=== PATIENT | male | born 1945 | race Caucasian/White ===

== ENCOUNTER 2017-05-07 18:07 | Observation (INO) ==
[2017-05-07] MEDS ORDERED: Ipratropium/Albuterol Neb 3 ML IH ONE (18:17)
--- NOTE | 2017-05-07 18:27 | Emergency Department Note ---
Disposition Clinical Impression: Chest pain Qualifiers: Chest pain type: unspecified Qualified Code(s): R07.9 - Chest pain, unspecified Disposition: Admitted As Inpatient Condition: Good Forms: ED Satisfaction Letter, Work/School Release Time of Disposition: 20:11 General Adult HPI - General Chief complaint: ED Chest Pain Stated complaint: CP/SOB Time Seen by Provider: 05/07/17 18:11 Source: patient Mode of arrival: ambulatory Limitations: no limitations Nursing Notes Reviewed: Yes Vital Signs Reviewed: Yes - History of Present Illness HPI Narrative: 72-year-old male presenting to the emergency department complaining of chest pain. The patient states it radiates slightly in between his shoulder blades. He denies any radiation into his arms. He denies any nausea, vomiting or diaphoresis with these symptoms. Patient is a significant past medical history of heart surgery in 2007. He denies being on any anticoagulation at this time. He also states he has COPD and was just treated for bronchitis and finished amoxicillin on Sunday. Patient denies any other symptoms at this time. He states the pain comes and goes since last evening. He did not try anything at home. The pain is nonexertional. Pain Scale: 5 - Related Data Allergies Allergy/AdvReac Type Severity Reaction Status Date / Time Sulfa (Sulfonamide Allergy Hives Verified 05/07/17 18:08 Antibiotics) morphine AdvReac "Makes me Verified 05/07/17 18:08 crazy" All systems ED: reviewed and negative except as stated. Constitutional: Denies: fever, chills Eyes: Reports: as per HPI ENT ED: Reports: as per HPI Cardiovascular: Reports: chest pain. Denies: palpitations Respiratory: Reports: dyspnea, wheezes Gastrointestinal: Denies: abdominal pain, nausea, vomiting Genitourinary: Reports: as per HPI Musculoskeletal: Reports: back pain Integumentary: Denies: rash, abrasion Neurological: Denies: weakness, numbness, paresthesias Psychiatric: Reports: as per HPI Endocrine: Reports: as per HPI Hematological/Lymphatic: Reports: as per HPI Allergic/Immunologic: Reports: as per HPI Past Medical History - Past Medical History Attestation: Yes The following information was validated with the patient. Medical history: Reports: COPD, hypertension - Social History Smoking Status: Current every day smoker Alcohol use: Reports: none Drug use: Reports: none Physical Exam - General Limitations: no limitations General appearance: alert, in no apparent distress - Head Head exam: atraumatic, normocephalic, normal inspection - Eye Eye exam: Present: normal appearance. Absent: scleral icterus, conjunctival injection - Chest Chest inspection: Present: normal inspection, symmetric chest wall rise. Absent : tenderness, rash - Respiratory Respiratory exam: Present: wheezes (expiratory wheezing noted throughout). Absent: respiratory distress, stridor, accessory muscle use - Cardiovascular Cardiovascular exam: Present: regular rate, normal rhythm, normal heart sounds - Abdominal Exam Abdominal exam: Present: soft, Non-Tender. Absent: distention, guarding, rebound - Extremities Exam Extremities exam: Present: normal inspection, full ROM - Neurological Exam Neurological exam: Present: alert, oriented X3 - Psychiatric Psychiatric exam: Present: normal affect, normal mood - Skin Skin exam: Present: warm, intact Course Course Narrative: 72-year-old male presenting to the emergency department with chief complaint of chest pain and shortness of breath. Patient has significant history of COPD with chronic bronchitis and had a previous open heart surgery in 2007. Patient has nonspecific T-wave changes on his EKG. Heart score greater than 3 at this time. We will perform a chest pain workup including troponin, EKG, basic labs along with a chest x-ray. We also provide the patient with 2 nebs for his expiratory wheezing. Disposition most likely will be admission due to the patient's heart score but pending results. - Reevaluation(s) Reevaluation #1: Patient's white blood cell count elevated at 15.6. Otherwise labs are within normal limit. Patient's heart score is 6. We will admit the patient at this time for chest pain rule out. Patient is alert and oriented 3 in the room with stable vital signs at this time. He agrees with this plan. Dr. Hodges accepts the patient. Vital Signs Temperature 98.4 F 05/07/17 18:13 Pulse Rate 82 05/07/17 18:13 Respiratory Rate 16 05/07/17 18:13 Blood Pressure 130/87 05/07/17 18:13 O2 Sat by Pulse Oximetry 97 05/07/17 18:13 Temperature 98.4 F 05/07/17 18:13 Pulse Rate 79 05/07/17 20:00 Respiratory Rate 24 05/07/17 20:00 Blood Pressure 125/86 05/07/17 20:00 O2 Sat by Pulse Oximetry 93 05/07/17 20:00 Oxygen Delivery Oxygen Delivery Room Air Medical Decision Making - Lab Data Result diagrams: 05/07/17 19:01 05/07/17 19:01 Lab Results 05/07/17 05/07/17 05/07/17 Range/Units 19:01 19: 19:01 WBC 15.6 H (4.3-11.1) K/mcL RBC 4.63 (4.19-5.50) M/mcL Hgb 14.2 (12.9-16.9) g/dL Hct 43.4 (37.5-50.1) % MCV 93.7 (83.0-100.0) fL MCH 30.7 (28.0-33.3) pg MCHC 32.7 (31.6-35.5) g/dL RDW 13.5 (11.5-14.5) % Plt Count 348 (140-400) K/mcL MPV 9.2 L (9.4-12.4) fL Immature Gran % 0.6 (0-4) % Seg Neutrophils % 77.2 % Lymphocytes % 10.2 % Monocytes % 9.6 % Eosinophils % 2.1 % Basophils % 0.3 % Neutrophils # 12.1 H (1.6-8.9) K/mcL Lymphocytes # 1.6 (0.6-4.6) K/mcL Monocytes # 1.5 H (0.0-1.3) K/mcL Eosinophils # 0.3 (0.0-0.6) K/mcL Basophils # 0.1 (0.0-0.2) K/mcL PT 10.5 (9.4-12.1) Seconds INR 1.0 Sodium 137 (136-145) mEq/L Potassium 4.1 (3.5-4.5) mEq/L Chloride 101 (98-109) mEq/L Carbon Dioxide 26 (19-29) mEq/L BUN 21 (8-26) mg/dL Creatinine 0.90 (0.72-1.25) mg/dL Est GFR ( Amer) > 60 (> 60) Est GFR (Non-Af Amer) > 60 (> 60) BUN/Creatinine Ratio 23 (6-26) Glucose 83 (70-99) mg/dL Calculated Osmolality 286 (280-300) Calcium 9.5 (8.6-10.8) mg/dL Troponin I (0-0.03) ng/mL 05/07/17 Range/Units 19:01 WBC (4.3-11.1) K/mcL RBC (4.19-5.50) M/mcL Hgb (12.9-16.9) g/dL Hct (37.5-50.1) % MCV (83.0-100.0) fL MCH (28.0-33.3) pg MCHC (31.6-35.5) g/dL RDW (11.5-14.5) % Plt Count (140-400) K/mcL MPV (9.4-12.4) fL Immature Gran % (0-4) % Seg Neutrophils % % Lymphocytes % % Monocytes % % Eosinophils % % Basophils % % Neutrophils # (1.6-8.9) K/mcL Lymphocytes # (0.6-4.6) K/mcL Monocytes # (0.0-1.3) K/mcL Eosinophils # (0.0-0.6) K/mcL Basophils # (0.0-0.2) K/mcL PT (9.4-12.1) Seconds INR Sodium (136-145) mEq/L Potassium (3.5-4.5) mEq/L Chloride (98-109) mEq/L Carbon Dioxide (19-29) mEq/L BUN (8-26) mg/dL Creatinine (0.72-1.25) mg/dL Est GFR ( Amer) (> 60) Est GFR (Non-Af Amer) (> 60) BUN/Creatinine Ratio (6-26) Glucose (70-99) mg/dL Calculated Osmolality (280-300) Calcium (8.6-10.8) mg/dL Troponin I 0.00 (0-0.03) ng/mL - EKG Data EKG #1 EKG attestation: Yes I reviewed and interpreted this EKG. EKG results narrative: Sinus rhythm. Left axis deviation. 82 bpm. NV interval 123, QRS 125, QTC 408. T-wave inversion noted in V1, V2, V3 and V4. When compared to previous EKG completed on 01/15/2014 due to noted in V3 and V4.
--- NOTE | 2017-05-07 18:30 | Emergency Department Note ---
START Narrative - START START: I examined this patient and my medical decision-making was reviewed with the [employer] HAND/PA/Advanced Practice Nurse/Resident Physician. I agree with the documented findings, disposition and treatment plan as described except to the extent set forth below. ED attending: Patient's emergency medicine resident Dr. Tracey Bazan. Please see copy of this note for H&P evaluation and management and ED disposition. We both had independent [id number] time in contact with this patient. Briefly: 72-year-old male history of CAD smoker heart scores 5. Presents with chest pain or discomfort similar to his prior open heart surgery. Going on for about a day or so. Physical examination is benign EKG shows new T-wave inversions in V4 and V5 compared to prior EKG. Patient will undergo troponin chest x-ray screening labs admission is anticipated. Disposition pending
[2017-05-07] MEDS ORDERED: Aspirin 81 MG TAB.CHEW PO STA (18:31)
[2017-05-07] MEDS ORDERED: Nitroglycerin 0.4 MG TAB.SUBL SL PRN (18:31)
[2017-05-07 19:42] LABS: Basophils # 0.1 K/mcL (0.0-0.2); Basophils % 0.3 %; Eosinophils # 0.3 K/mcL (0.0-0.6); Eosinophils % 2.1 %; Hematocrit 43.4 % (37.5-50.1); Hemoglobin 14.2 g/dL (12.9-16.9); Immature Granulocytes % 0.6 % (0-4); Lymphocytes # 1.6 K/mcL (0.6-4.6); Lymphocytes % 10.2 %; Mean Corpuscular HGB Conc 32.7 g/dL (31.6-35.5); Mean Corpuscular Hemoglobin 30.7 pg (28.0-33.3); Mean Corpuscular Volume 93.7 fL (83.0-100.0); Mean Platelet Volume 9.2 fL (9.4-12.4); Monocytes # 1.5 K/mcL (0.0-1.3); Monocytes % 9.6 %; Neutrophils # 12.1 K/mcL (1.6-8.9); Platelet Count 348 K/mcL (140-400); Red Blood Count 4.63 M/mcL (4.19-5.50); Red Cell Distribution Width 13.5 % (11.5-14.5); Segmented Neutrophils % 77.2 %
[2017-05-07 19:47] LABS: Prothrombin Time 10.5 Seconds (9.4-12.1)
[2017-05-07 19:58] LABS: BUN/Creatinine Ratio 23 (6-26); Blood Urea Nitrogen 21 mg/dL (8-26); Calcium 9.5 mg/dL (8.6-10.8); Carbon Dioxide 26 mEq/L (19-29); Chloride 101 mEq/L (98-109); Glucose 83 mg/dL (70-99); Osmolality,Calculated 286 (280-300); Potassium 4.1 mEq/L (3.5-4.5); Sodium 137 mEq/L (136-145); eGFR For African Americans > 60 (> 60); eGFR For Non-African Americans > 60 (> 60)
[2017-05-07] MEDS ORDERED: Naloxone 0.4 MG/ML INJ IVP PRN (23:26)
[2017-05-07] MEDS ORDERED: Mag Hydrox/Al Hydrox/Simeth 30 ML UDC PO PRN (23:26)
[2017-05-07] MEDS ORDERED: *HR* Morphine 2 MG/ML SYRINGE IVP PRN (23:26)
[2017-05-07] MEDS ORDERED: Ondansetron 4 MG/2 ML VIAL IVP PRN (23:26)
[2017-05-07] MEDS ORDERED: Albuterol 2.5 MG/3 ML NEBULIZER IH PRN (23:31)
--- NOTE | 2017-05-07 23:32 | Internal Med History&Physical ---
Date of Encounter: 05/07/17 Time of Encounter: 23:31 Assessment and Plan (1) Chest pain Current visit: Yes Status: Acute Atypical and pleuritic chest pain. EKG negative troponins negative. History of coronary artery disease status post CABG has not had any workup last few years. Patient is quite concerned. In order to alleviate patient's anxiety will go ahead and order stress Myoview test to alleviate his anxiety currently he is on aspirin beta romel and when necessary nitrates. Qualifiers: Chest pain type: unspecified Qualified Code(s): R07.9 - Chest pain, unspecified (2) Coronary artery disease Current visit: Yes Status: Acute Strip coronary artery disease a status post CABG has not had any workup in the last few years. Qualifiers: Coronary Disease-Associated Artery/Lesion type: bypass graft, autologous vein Associated angina: with unspecified angina Qualified Code(s): I25.719 - Atherosclerosis of autologous vein coronary artery bypass graft(s) with unspecified angina pectoris (3) COPD (chronic obstructive pulmonary disease) Current visit: Yes Status: Acute Scattered wheezing suspect still has bronchitis. Chest x-ray is negative for pneumonia. IV doxycycline and nebulizers. Qualifiers: COPD type: COPD with acute exacerbation Qualified Code(s): J44.1 - Chronic obstructive pulmonary disease with (acute) exacerbation Internal Medicine - H&P: HPI Chief complaint: Chest pain Admitted From: Home Plans for Post Hospital Care: Home History of present illness: Patient was seen on May 07. Mr. Gurrola is a 72 year old male past medical history significant for coronary artery disease status post CABG, hypertension dyslipidemia and smoking. Recently he was treated for upper respiratory tract infection and COPD exacerbation. Since then he has been having substernal chest pain which is pleuritic in nature. Patient states that substernal chest pain radiating to his back between shoulder blades. But it is not very intense neither does he feel dizzy or had syncope or any other symptoms otherwise. Denies any abdominal pain nausea vomiting diarrhea dysuria urgency frequency or hematuria and hematochezia hematemesis melena. Past Med Surg Social Fam HX - Past Medical History Medical history: COPD, hypertension Psychiatric history: no psych history - Past Surgical History Surgical History: coronary bypass (CABG) - Social History Smoking Status: Current every day smoker Alcohol use: none Drug use: none - Family History Mother Hx Family Neurologic Disorders: Yes (cva) Internal Medicine - H&P: Meds Albuterol Sulfate [Proair Hfa] 2 puff IH Q4H PRN 05/07/17 [History] Ascorbic Acid [Vitamin C] 500 mg PO DAILY 05/07/17 [History] Cholecalciferol (D-3) [Vitamin D] 1,000 unit PO DAILY 05/07/17 [History] Cyanocobalamin (Vitamin B-12) [Vitamin B12] 1,000 mcg PO DAILY 05/07/17 [History ] Lisinopril [Zestril] 40 mg PO DAILY 05/07/17 [History] Metoprolol [Lopressor] 25 mg PO BID 05/07/17 [History] Niacin [Plain Niacin] 500 mg PO DAILY 05/07/17 [History] Triamterene/HCTZ 37.5/25mg [Dyazide] 1 each PO DAILY 05/07/17 [History] Vitamin E Acid Succinate [Vitamin E] 400 units PO DAILY 05/07/17 [History] 3 Allergy/AdvReac Type Severity Reaction Status Date / Time Sulfa (Sulfonamide Allergy Hives Verified 05/07/17 18:08 Antibiotics) morphine AdvReac "Makes me Verified 05/07/17 18:08 crazy" All Systems PM: A 10-system review of systems was performed and is negative for pertinent findings except as documented above in the HPI. - Constitutional Constitutional: no chills, no fever(s), no night sweats - EENT Eyes: no change in vision, no discharge, no pain, no photophobia Ears: no ear discharge, no ear pain, no tinnitus Nose, mouth and throat: no dysphagia, no nasal discharge, no neck pain, no sore throat - Cardiovascular Cardiovascular ROS IM: chest pain, no diaphoresis, no dyspnea, no lightheadedness, no palpitations, no syncope - Respiratory Respiratory: cough, no dyspnea, no wheezing, no excessive phlegm production - Gastrointestinal Gastrointestinal: no abdominal pain, no diarrhea, no hematemesis, no hematochezia, no melena, no nausea, no vomiting - Musculoskeletal Musculoskeletal ROS IM: no numbness, no tingling - Integumentary Integumentary IM: no rash, no unusual bruising - Neurological Neurological ROS: no confusion, no convulsions, no focal weakness, no numbness, no tingling, no tremor(s) - Hematologic/Lymphatic Hematologic/Lymphatic: no easy bruising - Constitutional Vitals: Temp Pulse Resp BP Pulse Ox 98.0 F 75 16 134/77 95 05/07/17 22:42 05/07/17 22:42 05/07/17 22:42 05/07/17 22:42 05/07/17 22:42 General appearance: Present: A&O X 3, no acute distress, answers questions appropriately - Head Head exam: Present: atraumatic, normocephalic - Eye Eye exam: Present: PERRL, conjuntiva pink, sclera anicteric Pupils: Present: PERRL - Neck Neck exam general surgery: Present: supple, trachea midline. Absent: lymphadenopathy - Respiratory Respiratory exam: Present: CTAB. Absent: accessory muscle use, rales, rhonchi, wheezes - Cardiovascular Cardiovascular exam: Present: RRR, +S1, +S2. Absent: diastolic murmur, gallop, rubs, systolic murmur - GI/Abdominal GI/Abdominal exam: Present: normal bowel sounds, soft, no peritoneal signs. Absent: distended, tenderness - Extremities Exam Extremities exam: Present: warm, radial pulses palpable and symmetrical. Absent : calf tenderness, cyanotic, pedal edema - Neurological Exam Neurological exam: Present: CN II-XII intact, oriented X3, no focal deficits. Absent: pronater drift, facial droop, speech deficit - Skin Skin exam: Present: dry, intact Internal Med - H&P Results - Labs CBC & Chem 7: 05/07/17 19:01 05/07/17 19:01
[2017-05-07] MEDS ORDERED: 0.9 % Sodium Chloride 1,000 ML IVC SCH (23:45)
[2017-05-08] MEDS: Ipratropium/Albuterol Neb 3 ML IH SCH ×4 (00:01→15:43)
[2017-05-08] MEDS: Acetaminophen 325 MG TABLET PO PRN ×2 (00:15→06:17)
[2017-05-08 01:19] LABS: Chol/HDL Ratio 4.4 (0-4.9)
[2017-05-08] MEDS ORDERED: Doxycycline 100 MG in 0.9 % Sodium Chloride Mini Bag 100 ML IVPB SCH ×2 (06:00→09:00)
[2017-05-08] MEDS ORDERED: Regadenoson 0.4 MG/5 ML SYRINGE IVP ONE (07:34)
[2017-05-08] MEDS ORDERED: Cyanocobalamin (B-12) 1,000 MCG TABLET PO SCH (09:00)
[2017-05-08] MEDS ORDERED: Niacin (24 HR) 500 MG TAB.ER.24H PO SCH (09:00)
[2017-05-08] MEDS ORDERED: Aspirin 325 MG TABLET PO SCH (09:00)
[2017-05-08] MEDS ORDERED: Lisinopril 20 MG TABLET PO SCH (09:00)
[2017-05-08] MEDS ORDERED: Cholecalciferol (D-3) 1,000 UNIT TABLET PO SCH (09:00)
[2017-05-08] MEDS ORDERED: Ascorbic Acid 500 MG TABLET PO SCH (09:00)
[2017-05-08 11:07] LABS: Hematocrit 43.3 % (37.5-50.1); Hemoglobin 14.1 g/dL (12.9-16.9); Mean Corpuscular HGB Conc 32.6 g/dL (31.6-35.5); Mean Corpuscular Hemoglobin 30.6 pg (28.0-33.3); Mean Corpuscular Volume 93.9 fL (83.0-100.0); Mean Platelet Volume 8.9 fL (9.4-12.4); Platelet Count 321 K/mcL (140-400); Red Blood Count 4.61 M/mcL (4.19-5.50); Red Cell Distribution Width 13.7 % (11.5-14.5)
[2017-05-08 15:25] VITALS: BP 131/81
--- NOTE | 2017-05-08 16:17 | Discharge Summary ---
Date of Encounter: 05/08/17 Time of Encounter: 16:07 - Discharge Diagnosis (1) Acute bronchitis Priority: Primary Status: Acute Comments: Suspected. Chest CTA with pulmonary emphysema with acute or chronic bronchitis. Symptomatic with productive cough, subjective fevers. WBC 16 K, lactic acid normal. Recently completed a 10 day course of Levaquin outpatient. Strongly encouraged patient to stay inpatient for IV ATB, blood cultures and urine culture, however patient refusing. Will give Rx for doxycycline. Recommend follow-up with PCP within 3-5 days. Patient left AMA on 05/08/2017. Qualifiers: Bronchitis organism: unspecified organism Qualified Code(s): J20.9 - Acute bronchitis, unspecified (2) Metastatic lung cancer (metastasis from lung to other site) Priority: Primary Status: Acute Comments: chest CTA with right upper lobe malignant appearing mass with probable mediastinal invasion and hepatic metastatic disease concerning for primary lung cancer. This is a new diagnosis, a long discussion with the patient and he is declining oncology evaluation at this time. Request that is not told about diagnosis. Strongly encourage outpatient follow-up. Patient has follow- up appointment with PCP 05/16/17 and will discuss with PCP at that time. Qualifiers: Laterality: right Qualified Code(s): C34.91 - Malignant neoplasm of unspecified part of right bronchus or lung (3) Coronary artery disease Priority: Primary Status: Acute Comments: per hx. presented with intermittent chest pain. Serial troponin negative. 05/13 stress test negative for infarct or ischemia. Chest pain possibly secondary to bronchitis and/or new diagnosis of lung cancer. No home ASA, BB. Qualifiers: Coronary Disease-Associated Artery/Lesion type: [place] artery [place] vs. transplanted heart: [place] heart Associated angina: without angina Qualified Code(s): I25.10 - Atherosclerotic heart disease of [place] coronary artery without angina pectoris (4) COPD (chronic obstructive pulmonary disease) Priority: Primary Status: Chronic Comments: per hx. no evidence of exacerbation; no wheezing. Treating for acute on chronic bronchitis as noted above. Continue home inhaler. Qualifiers: COPD type: emphysema Emphysema type: unilateral Qualified Code(s): J43.0 - Unilateral pulmonary emphysema [MacLeod's syndrome] (5) Descending thoracic aortic aneurysm Priority: Secondary Status: Acute Comments: Chest CTA with 3.7 cm ectasia of the descending thoracic aorta. Strongly advised BP control and outpatient follow-up. - Discharge Medications Prescriptions: Aspirin 81 mg PO DAILY #30 tab.chew Doxycycline 100 mg PO BID #14 capsule Home Medications: Albuterol Sulfate [Proair Hfa] 2 puff IH Q4H PRN 05/07/17 [History] Ascorbic Acid [Vitamin C] 500 mg PO DAILY 05/07/17 [History] Cholecalciferol (D-3) [Vitamin D] 1,000 unit PO DAILY 05/07/17 [History] Cyanocobalamin (Vitamin B-12) [Vitamin B12] 1,000 mcg PO DAILY 05/07/17 [History ] Lisinopril [Zestril] 40 mg PO DAILY 05/07/17 [History] Metoprolol [Lopressor] 25 mg PO BID 05/07/17 [History] Niacin [Plain Niacin] 500 mg PO DAILY 05/07/17 [History] Triamterene/HCTZ 37.5/25mg [Dyazide] 1 each PO DAILY 05/07/17 [History] Vitamin E Acid Succinate [Vitamin E] 400 units PO DAILY 05/07/17 [History] Aspirin 81 mg PO DAILY #30 tab.chew 05/08/17 [Rx] Doxycycline 100 mg PO BID #14 capsule 05/08/17 [Rx] Allergies/Adverse Reactions: 3 Allergy/AdvReac Type Severity Reaction Status Date / Time Sulfa (Sulfonamide Allergy Hives Verified 05/07/17 18:08 Antibiotics) morphine AdvReac "Makes me Verified 05/07/17 18:08 crazy" Procedures/tests Complete & Pending: Procedures Performed prior 72 hours Category Date Time Status CTA chest [CT angio chest] [CT] Routine Cat Scan 05/08/17 12:30 Completed NM sagar perf SPECT multi [NM] Routine Exams 05/07/17 23:29 Taken SP pharm nuclear stress Routine Y 05/07/17 23:29 Completed Date of admission: 05/07/17 21:15 Primary care physician: Benny Garcia MD Consults: 05/08/17 13:46 Consult to Oncology [CONS] Routine Consulting Provider: [facility] Reason for Consult: Chest CTA with new lung cancer with liver mets Call Completed: Yes Discharging clinician: Korin Olguin Anticipated date of discharge: 05/08/17 - Patient Status Disposition: Left Against Medical Advice Condition: Good Overall status at discharge: patient is progressing back to baseline - Discharge Instructions Instructions: Lung Cancer (DC), Acute Bronchitis (DC), Doxycycline (By mouth) Follow Up With: Benny Garcia MD [Primary Care Provider] - - Diet and Activity Activity: increase activity as tolerated Diet: advance to your usual diet Interval History: Seen and examined at bedside. Patient is new to me, information obtained from chart review and patient report. Patient reported chest pain that radiated to his back on my exam. He is a former smoker and there was concern for possible dissection, a chest CTA was completed that showed likely primary lung cancer with metastases to mediastinum and liver. Patient was notified of chest CTA findings and declined all treatment. He was initially agreeable to oncology consult however change his mind. He did not want his notified of results. Says he has a follow-up appointment on 05/16/17 with his PCP and he would discuss results at that time. Strongly advised patient to stay inpatient as I was concerned with his elevated white count and upper respiratory symptoms however she declined. He was advised to return to the ER he experienced fevers , chills, rigors, chest pain or shortness of breath. He verbalized understanding. Hospital course: Mr. Gurrola is a 72 year old male - Time Spent with Patient Total time spent providing and/or coordinating discharge services: - Constitutional Vitals: Temp Pulse Resp BP Pulse Ox 97.5 F L 83 16 131/81 96 05/08/17 15:22 05/08/17 15:22 05/08/17 15:22 05/08/17 15:22 05/08/17 15:22 General appearance: Present: A&O X 3, no acute distress, answers questions appropriately - Head Head exam: Present: atraumatic, normocephalic - Eye Eye exam: Present: PERRL, conjuntiva pink, sclera anicteric Pupils: Present: PERRL - Neck Neck exam general surgery: Present: supple, trachea midline. Absent: lymphadenopathy - Respiratory Respiratory exam: Present: CTAB. Absent: accessory muscle use, rales, rhonchi, wheezes - Cardiovascular Cardiovascular exam: Present: RRR, +S1, +S2. Absent: diastolic murmur, gallop, rubs, systolic murmur - GI/Abdominal GI/Abdominal exam: Present: normal bowel sounds, soft, no peritoneal signs. Absent: distended, tenderness - Extremities Exam Extremities exam: Present: warm, radial pulses palpable and symmetrical. Absent : calf tenderness, cyanotic, pedal edema - Neurological Exam Neurological exam: Present: CN II-XII intact, oriented X3, no focal deficits. Absent: pronater drift, facial droop, speech deficit - Skin Skin exam: Present: dry, intact
--- NOTE | 2017-05-08 17:49 | Electrocardiograph Report ---
[address] [address] Test Date: 2017-05-07 Pat Name: Chris Gurrola Department: 103 Room: 3B Gender: M [employer] Dispatcher: : 1945 Requested By: Kenrick Pedersen Order Number: [id number] Reading MD: Katherine Olivia Measurements Intervals [place] Rate: 82 P: 35 CO: 123 QRS: -58 QRSD: 125 T: 48 QT: 370 QTc: 408 Interpretive Statements SINUS RHYTHM INDETERMINATE AXIS RIGHT BUNDLE BRANCH BLOCK [120+ ms QRS DURATION, UPRIGHT V1, 40+ ms S IN I/aVL/V4/V5/V6] Electronically Signed On 05-08-2017 17:48:05 EST by Katherine Olivia
== END 2017-05-08 19:00 | disposition left against medical advice (07) ==
LOC: EMEROO 18:07 → 3BNU 18:07
PROVIDERS: ADMIT Family Medicine; ATTEND Registered Nurse

== ENCOUNTER 2017-05-24 10:19 | Inpatient (IN) ==
[2017-05-24] MEDS ORDERED: Aspirin 81 MG TAB.CHEW PO ONE (10:50)
[2017-05-24] MEDS ORDERED: 0.9 % Sodium Chloride 1,000 ML IVC ONE ×3 (10:51→12:58)
[2017-05-24] MEDS ORDERED: Acetaminophen 325 MG TABLET PO ONE (10:51)
[2017-05-24 10:56] LABS: Basophils # 0.1 K/mcL (0.0-0.2); Basophils % 0.3 %; Eosinophils # 0.1 K/mcL (0.0-0.6); Eosinophils % 0.8 %; Immature Granulocytes % 0.9 % (0-4); Lymphocytes # 0.7 K/mcL (0.6-4.6); Lymphocytes % 3.8 %; Mean Corpuscular HGB Conc 32.7 g/dL (31.6-35.5); Mean Corpuscular Hemoglobin 30.8 pg (28.0-33.3); Mean Corpuscular Volume 94.4 fL (83.0-100.0); Mean Platelet Volume 9.3 fL (9.4-12.4); Monocytes # 2.1 K/mcL (0.0-1.3); Monocytes % 11.6 %; Neutrophils # 15.2 K/mcL (1.6-8.9); Platelet Count 321 K/mcL (140-400); Red Blood Count 5.19 M/mcL (4.19-5.50); Red Cell Distribution Width 14.6 % (11.5-14.5); Segmented Neutrophils % 82.6 %
[2017-05-24 11:00] LABS: INR 1.1; Prothrombin Time 11.6 Seconds (9.4-12.1)
[2017-05-24 11:12] LABS: BUN/Creatinine Ratio 23 (6-26); Blood Urea Nitrogen 26 mg/dL (8-23); Calcium 10.8 mg/dL (8.6-10.3); Carbon Dioxide 30 mEq/L (23-29); Chloride 103 mEq/L (98-107); Glucose 118 mg/dL (70-105); Osmolality,Calculated 294 (280-300); Potassium 4.2 mEq/L (3.5-5.1); Sodium 139 mEq/L (136-145); eGFR For African Americans > 60 (> 60); eGFR For Non-African Americans > 60 (> 60)
[2017-05-24] MEDS ORDERED: Vancomycin 1,000 MG in D5% in Water 250 ML IVPB ONE (11:20)
[2017-05-24] MEDS ORDERED: Levofloxacin 750 MG/150 ML 750 MG/150 ML BAG IVPB ONE (11:20)
[2017-05-24] MEDS ORDERED: Piperacillin/Tazobactam 3.375 GM in Water for inj. (sterile) 20 ML IVP ONE (11:20)
--- NOTE | 2017-05-24 11:30 | Emergency Department Note ---
Disposition Clinical Impression: Bronchitis, COPD exacerbation, Atrial fibrillation with RVR, Elevated troponin I level, Descending aortic aneurysm, Dehydration Chest pain Qualifiers: Chest pain type: precordial pain Qualified Code(s): R07.2 - Precordial pain Metastatic primary lung cancer Qualifiers: Laterality: right Qualified Code(s): C34.91 - Malignant neoplasm of unspecified part of right bronchus or lung Fever Qualifiers: Fever type: unspecified Qualified Code(s): R50.9 - Fever, unspecified Disposition: Admitted As Inpatient Condition: Fair Time of Disposition: 15:00 Chest Pain HPI - General Chief Complaint: ED Chest Pain Stated Complaint: CP/SOB Time Seen by Provider: 05/24/17 10:50 Source: patient, family Limitations: no limitations Vital Signs Reviewed: Yes Nursing Notes Reviewed: Yes - History of Present Illness HPI Narrative: 72-year-old male brought in for chest pain as started 1 day ago. Patient states chest pain started severe 10/10 mid substernal pressure without nausea or vomiting. Patient states the pain now is 3/10 the pain remains constant. Patient states he started feeling overall ill yesterday with difficulty breathing, worsening cough, body aches and pains. Patient states she has a history of recent diagnosis of cancer of his lung and descending aortic aneurysm that was diagnosed 2 weeks ago. Patient states that he refuses treatment for either. Patient states is not on any cardiac medications at this time. Patient states he had one incidence of A. fib after his CABG back in 2007 that resolved on its own patient does not been on any rate control medication for A. fib. Severity scale (1-10): 5 - Related Data Home Medications Medication Instructions Recorded Confirmed Albuterol Sulfate [Proair Hfa] 2 puff IH Q4H PRN 05/07/17 05/24/17 Ascorbic Acid [Vitamin C] 500 mg PO DAILY 05/07/17 05/24/17 Cholecalciferol (D-3) [Vitamin D] 1,000 unit PO DAILY 05/07/17 05/24/17 Cyanocobalamin (Vitamin B-12) 1,000 mcg PO DAILY 05/07/17 05/24/17 [Vitamin B12] Lisinopril [Zestril] 40 mg PO DAILY 05/07/17 05/24/17 Metoprolol [Lopressor] 25 mg PO BID 05/07/17 05/24/17 Niacin [Plain Niacin] 500 mg PO DAILY 05/07/17 05/24/17 Triamterene/HCTZ 37.5/25mg 1 tab PO DAILY 05/07/17 05/24/17 [Dyazide] Vitamin E Acid Succinate [Vitamin 400 units PO DAILY 05/07/17 05/24/17 E] Previous Rx's Medication Instructions Recorded Aspirin 81 mg PO DAILY #30 tab.chew 05/08/17 Allergies Allergy/AdvReac Type Severity Reaction Status Date / Time Sulfa (Sulfonamide Allergy Hives Verified 05/07/17 18:08 Antibiotics) morphine AdvReac "Makes me Verified 05/07/17 18:08 crazy" All systems ED: reviewed and negative except as stated. Review of Systems: As Per HPI Constitutional: Reports: fever Eyes: Denies: vision change ENT ED: Reports: congestion Cardiovascular: Reports: chest pain Respiratory: Reports: cough, dyspnea Gastrointestinal: Denies: abdominal pain, nausea, vomiting Chest Pain PMH - Past Medical History Medical history: Reports: non-contributory, COPD, hypertension Surgical history: Reports: coronary bypass (CABG) Psychiatric history: Reports: no psych history - Social History Smoking Status: Current every day smoker Alcohol use: Reports: none Drug use: Reports: none Physical Exam Vital Signs Temperature 103.1 F H 05/24/17 10:30 Pulse Rate 147 05/24/17 10:30 Respiratory Rate 28 05/24/17 10:30 Blood Pressure 161/99 05/24/17 10:30 O2 Sat by Pulse Oximetry 81 05/24/17 10:30 Temperature 97.7 F 05/24/17 23:43 Pulse Rate 84 05/24/17 23:43 Respiratory Rate 21 05/24/17 23:43 Blood Pressure 122/69 05/24/17 23:43 O2 Sat by Pulse Oximetry 98 05/24/17 23:43 Oxygen Delivery Oxygen Delivery Nasal Cannula 72-year-old male who is alert and oriented 3 but is in acute distress secondary to chest pain, fever 103, and chest discomfort. Patient looks fatigued, dehydrated with dry mucous membranes and cracked lips. Patient is tachypnea and has conversational dyspnea. - General Limitations: no limitations General appearance: alert - Head Head exam: atraumatic, normocephalic, normal inspection - Eye Eye exam: Present: normal appearance, PERRL, EOMI - ENT ENT exam: normal exam, normal oropharynx, mucous membranes dry - Neck Neck exam: Present: normal inspection, full ROM, trachea midline - Chest Chest inspection: Present: normal inspection, symmetric chest wall rise - Respiratory Respiratory exam: Present: normal lung sounds bilaterally. Absent: respiratory distress, wheezes - Cardiovascular Cardiovascular exam: Present: tachycardia, irregular rhythm - Abdominal Exam Abdominal exam: Present: soft, Non-Tender. Absent: tenderness, distention, guarding, rebound, rigidity - Extremities Exam Extremities exam: Present: normal inspection, full ROM. Absent: tenderness, normal capillary refill, pedal edema - Back Exam Back exam: Absent: CVA tenderness (R), CVA tenderness (L) - Neurological Exam Neurological exam: Present: alert, oriented X3 - Skin Skin exam: Present: warm, dry, intact, normal color Course Vital Signs Temperature 103.1 F H 05/24/17 10:30 Pulse Rate 147 05/24/17 10:30 Respiratory Rate 28 05/24/17 10:30 Blood Pressure 161/99 05/24/17 10:30 O2 Sat by Pulse Oximetry 81 05/24/17 10:30 Temperature 97.7 F 05/24/17 23:43 Pulse Rate 84 05/24/17 23:43 Respiratory Rate 21 05/24/17 23:43 Blood Pressure 122/69 05/24/17 23:43 O2 Sat by Pulse Oximetry 98 05/24/17 23:43 Oxygen Delivery Oxygen Delivery Nasal Cannula Chest Pain - [facility] Narrative Medical decision making narrative: Chest pain ACS/DE, pneumonia, PE, flu, dehydration, neoplasm Patient has recent diagnosis of metastatic lung cancer to his liver for which patient refuses treatment for. Patient is currently in A. fib RVR and presents with a high fever of 103 degrees Fahrenheit for which she was given Tylenol. Patient started IV hydration for concerns for cultures taken for concerns for possible sepsis. Lungs are clear for any consolidation. Patient's heart rate in A. fib RVR did not calm down after initial fluid boluses of 2 L. Patient is started on diltiazem bolus and drip. Patient's heart rate was slowed down patient started to feel dramatically better. Patient's chest pain resolved completely with control of his heart rate. Patient's labs showed elevation of white count 18.4, and elevation of troponin 0.04. Patient is positive for SIRS but no signs of infection. Patient's COPD exacerbation most likely secondary to acute bronchitis, patient's flu swab was negative for flu. Patient left AGAINST MEDICAL ADVICE on his last admission after finding out he has cancer. Discussion of patient's wishes concerning his present likely admission for treatment was had at bedside. Patient is unsure of if he wants to be declared DNR CC or DNR CCA at this time. Patient will be treated as full code. Patient does remain firm against treatment for his cancer and his descending aortic aneurysm. He will accept treatment for his current illness. Patient accepts this decision for admission. Patient will have further discussion with hospice once admitted to the hospital. Current heart rate around 117 bpm and no recurrence of chest pain. Dr. Suresh of cardiology has agreed to see the patient on admission to medicine. He agrees with treatment with diltiazem bolus and drip. Dr. Faulkner the hospitalist has except the patient for admission at 1332 hrs. - Medical Records Medical records reviewed: Yes I reviewed the patient's medical records. CT/CT angio chest IMPRESSION: 1. No evidence of pulmonary embolism 2. Pulmonary emphysema with acute or chronic bronchitis 3. 3.1 cm medial right upper lobe malignant appearing mass, with probable mediastinal invasion. There is hepatic metastatic disease. Mildly enlarged right hilar, mediastinal, and retrocrural lymph nodes are likely metastatic, and there is an enlarged periportal node in the upper abdomen 4. 3.7 cm ectasia of the descending thoracic aorta - Lab Data Lab results reviewed: Yes I reviewed the patient's lab results. Lab results narrative: Short CBC 05/24/17 Range/Units 10:31 WBC 18.4 H (4.3-11.1) K/mcL Hgb 16.0 (12.9-16.9) g/dL Hct 49.0 (37.5-50.1) % Plt Count 321 (140-400) K/mcL Neutrophils # 15.2 H (1.6-8.9) K/mcL BMP 05/24/17 Range/Units 10:31 Sodium 139 (136-145) mEq/L Potassium 4.2 (3.5-5.1) mEq/L Chloride 103 (98-107) mEq/L Carbon Dioxide 30 H (23-29) mEq/L BUN 26 H (8-23) mg/dL Creatinine 1.12 (0.70-1.30) mg/dL Glucose 118 H (70-105) mg/dL Calcium 10.8 H (8.6-10.3) mg/dL Cardiac Enzymes 05/24/17 05/24/17 05/24/17 Range/Units 22:40 16:45 10:31 Troponin I 0.13 H* 0.14 H* 0.04 H* (< 0.04) ng/mL Liver Function 05/24/17 Range/Units 10:31 Total Bilirubin 0.5 (0.3-1.0) mg/dL Direct Bilirubin 0.1 (0.0-0.2) mg/dL AST 19 (13-39) Units/L ALT 18 (7-52) Units/L Alkaline Phosphatase 119 H (34-104) Units/L Albumin 4.1 (3.5-5.7) g/dL Urine 05/24/17 Range/Units 11:55 Urine Color Yellow (Yellow) Urine Clarity Clear (Clear) Urine pH 6.0 (5.0-8.0) pH Units Ur Specific [place] 1.022 (1.010-1.025) Urine Protein 30 H (Neg-Trace) mg/dL Urine Glucose (UA) Normal (Normal) mg/dL Result diagrams: 05/24/17 10:31 05/24/17 10:31 Lab Results 05/24/17 05/24/17 05/24/17 Range/Units 10:31 10:31 10:31 WBC 18.4 H (4.3-11.1) K/mcL RBC 5.19 (4.19-5.50) M/mcL Hgb 16.0 (12.9-16.9) g/dL Hct 49.0 (37.5-50.1) % MCV 94.4 (83.0-100.0) fL MCH 30.8 (28.0-33.3) pg MCHC 32.7 (31.6-35.5) g/dL RDW 14.6 H (11.5-14.5) % Plt Count 321 (140-400) K/mcL MPV 9.3 L (9.4-12.4) fL Immature Gran % 0.9 (0-4) % Seg Neutrophils % 82.6 % Lymphocytes % 3.8 % Monocytes % 11.6 % Eosinophils % 0.8 % Basophils % 0.3 % Neutrophils # 15.2 H (1.6-8.9) K/mcL Lymphocytes # 0.7 (0.6-4.6) K/mcL Monocytes # 2.1 H (0.0-1.3) K/mcL Eosinophils # 0.1 (0.0-0.6) K/mcL Basophils # 0.1 (0.0-0.2) K/mcL PT 11.6 (9.4-12.1) Seconds INR 1.1 APTT 27.4 (26.0-36.0) Seconds Sodium 139 (136-145) mEq/L Potassium 4.2 (3.5-5.1) mEq/L Chloride 103 (98-107) mEq/L Carbon Dioxide 30 H (23-29) mEq/L BUN 26 H (8-23) mg/dL Creatinine 1.12 (0.70-1.30) mg/dL Est GFR ( Amer) > 60 (> 60) Est GFR (Non-Af Amer) > 60 (> 60) BUN/Creatinine Ratio 23 (6-26) Glucose 118 H (70-105) mg/dL Calculated Osmolality 294 (280-300) Calcium 10.8 H (8.6-10.3) mg/dL Phosphorus 2.5 L (2.7-4.5) mg/dL Magnesium 1.5 L (1.6-2.6) mg/dL Total Bilirubin 0.5 (0.3-1.0) mg/dL Direct Bilirubin 0.1 (0.0-0.2) mg/dL Indirect Bilirubin 0.4 (0.0-1.2) mg/dL AST 19 (13-39) Units/L ALT 18 (7-52) Units/L Alkaline Phosphatase 119 H (34-104) Units/L Troponin I (< 0.04) ng/mL B-Natriuretic Peptide (Less than 100) pg/mL Serum Total Protein 6.7 (6.4-8.9) g/dL Albumin 4.1 (3.5-5.7) g/dL Globulin 2.6 (2.4-3.5) g/dL Albumin/Globulin Ratio 1.6 (1.1-2.2) Lipase 10 L (11-82) Units/L Urine Color (Yellow) Urine Clarity (Clear) Urine pH (5.0-8.0) pH Units Ur Specific [place] (1.010-1.025) Urine Protein (Neg-Trace) mg/dL Urine Glucose (UA) (Normal) mg/dL Urine Ketones (Negative) mg/dL Urine Blood (Negative) Urine Nitrite (Negative) Urine Bilirubin (Negative) Urine Urobilinogen (Normal) mg/dL Ur Leukocyte Esterase (Negative) Urine Microscopic RBC (0-3) per hpf Urine Microscopic WBC (0-3) per hpf Ur Squamous Epith Cells (None-Few) per lpf Urine Bacteria (None-Few) per hpf Hyaline Casts (None-Few) per lpf Ur Culture Indicated? (NO) 05/24/17 05/24/17 05/24/17 Range/Units 10:31 10:52 11:55 WBC (4.3-11.1) K/mcL RBC (4.19-5.50) M/mcL Hgb (12.9-16.9) g/dL Hct (37.5-50.1) % MCV (83.0-100.0) fL MCH (28.0-33.3) pg MCHC (31.6-35.5) g/dL RDW (11.5-14.5) % Plt Count (140-400) K/mcL MPV (9.4-12.4) fL Immature Gran % (0-4) % Seg Neutrophils % % Lymphocytes % % Monocytes % % Eosinophils % % Basophils % % Neutrophils # (1.6-8.9) K/mcL Lymphocytes # (0.6-4.6) K/mcL Monocytes # (0.0-1.3) K/mcL Eosinophils # (0.0-0.6) K/mcL Basophils # (0.0-0.2) K/mcL PT (9.4-12.1) Seconds INR APTT (26.0-36.0) Seconds Sodium (136-145) mEq/L Potassium (3.5-5.1) mEq/L Chloride (98-107) mEq/L Carbon Dioxide (23-29) mEq/L BUN (8-23) mg/dL Creatinine (0.70-1.30) mg/dL Est GFR ( Amer) (> 60) Est GFR (Non-Af Amer) (> 60) BUN/Creatinine Ratio (6-26) Glucose (70-105) mg/dL Calculated Osmolality (280-300) Calcium (8.6-10.3) mg/dL Phosphorus (2.7-4.5) mg/dL Magnesium (1.6-2.6) mg/dL Total Bilirubin (0.3-1.0) mg/dL Direct Bilirubin (0.0-0.2) mg/dL Indirect Bilirubin (0.0-1.2) mg/dL AST (13-39) Units/L ALT (7-52) Units/L Alkaline Phosphatase (34-104) Units/L Troponin I 0.04 H* (< 0.04) ng/mL B-Natriuretic Peptide 159 H (Less than 100) pg/mL Serum Total Protein (6.4-8.9) g/dL Albumin (3.5-5.7) g/dL Globulin (2.4-3.5) g/dL Albumin/Globulin Ratio (1.1-2.2) Lipase (11-82) Units/L Urine Color Yellow (Yellow) Urine Clarity Clear (Clear) Urine pH 6.0 (5.0-8.0) pH Units Ur Specific [place] 1.022 (1.010-1.025) Urine Protein 30 H (Neg-Trace) mg/dL Urine Glucose (UA) Normal (Normal) mg/dL Urine Ketones Negative (Negative) mg/dL Urine Blood Negative (Negative) Urine Nitrite Negative (Negative) Urine Bilirubin Negative (Negative) Urine Urobilinogen Normal (Normal) mg/dL Ur Leukocyte Esterase Small H (Negative) Urine Microscopic RBC 5-15 H (0-3) per hpf Urine Microscopic WBC 3-5 H (0-3) per hpf Ur Squamous Epith Cells None Seen (None-Few) per lpf Urine Bacteria None Seen (None-Few) per hpf Hyaline Casts None Seen (None-Few) per lpf Ur Culture Indicated? YES A (NO) - Radiology Data Radiology results reviewed: Yes I reviewed the patient's radiology results. Chest X-Ray 05/24/17 10:50 IMPRESSION: Stable exam. No acute cardiopulmonary findings. D/ / Galina Smith MD / Galina Smith MD Interpreting Provider: Galina Smith MD Chest CTA 05/24/17 16:52 IMPRESSION: Negative study for pulmonary embolism. Stable exam from 05/08/2017 with stable appearance to spiculated masslike opacity medially to the right upper lobe concerning for neoplastic process along with hepatic metastatic disease as well as likely metastatic mediastinal and right hilar lymphadenopathy as well as right paraesophageal lymphadenopathy. Emphysema. D/ /24/2017 19:14:35 Ez Vogt MD / raul Interpreting Provider: Ez Vogt MD - EKG Data EKG attestation: Yes I reviewed and interpreted this EKG. EKG results narrative: EKG taken 05/16/2017 at 1024 hrs. shows sinus tachycardia at a rate of 1 45 bpm there are complex with incomplete right bundle branch block. The EKG for comparison taken 05/07/2017 shows a sinus rhythm at a rate 82 beats a minute with a right bundle branch block Repeat EKG taken at 1116 hrs. shows A. fib RVR at a rate of 186 bpm. Repeat EKG taken at 1206 hrs. shows sinus tachycardia with occasional ectopic beats at a rate of 131 bpm Heart Score - Score History: Moderately Suspicious EKG: Non Specific repolarisation Disturbance Age: Greater than 65 Risk Factors: Equal/Greater than 3 risk factor or history of atherosclerotic disease Troponin: 1-3x normal limit HEART Score Total: 7 Critical Care Time Critical Care Time: Yes Total Critical Care Time: 35 Attestation: The high probability of a clinically significant, sudden or life threatening deterioration of the [CV/resp] system(s) required my full and direct attention, intervention and personal management. The aggregate critical care time was [35] minutes. This time is in addition to time spent performing reported procedures but includes the following: [x] Data Review and interpretation [x] Patient assessment and monitoring of vital signs [x] Documentation [x] Medication orders and management Attestation Statement - Attestation Attestation: I examined this patient and my medical decision-making was reviewed with the Resident Physician, Dr. Rayo. I agree with the documented findings, disposition and treatment plan as described except to the extent set forth below. Patient is a 72-year-old white male who presents to emergency department with upper respiratory symptoms nasal congestion cough nonproductive with worsening shortness of breath and history of COPD. Patient's also extremely tachycardic and hypertensive on arrival. Patient has no prior history of established atrial fibrillation. He states he had a transient episode years ago in 2007 after his heart surgery. He has not been on any rate controlling medications or anticoagulants. Patient was recently hospitalized a few weeks ago for acute bronchitis and febrile illness and during that hospitalization the performed a CTA which discovered a new lung mass that was concerning for metastatic disease. They also found a thoracic aortic aneurysm. Patient was given referrals for hemoptic and vascular surgery but stated at the time of discharge that he did not want to pursue any outpatient follow-up for either issue. Patient has been noncompliant with his medications he is on metoprolol at home for blood pressure control but states he has not been taking it. On arrival patient's complaining of chest pain 3 out of 10 in severity nonradiating with shortness of breath and palpitations. Patient's been having chest pain constant for the past 24 hours which she states time of onset was 10 out of 10 in severity. Patient denies any lightheadedness or syncope, no radiation of pain into his back or flank and no abdominal pain. I agree with patient's physical exam findings as documented. Patient was febrile on arrival, extremely tachycardic, hypertensive and hypoxic on room air. Patient met sepsis criteria so sepsis protocol was initiated on arrival. She was placed on court recording monitor and continuous pulse ox 2 large bore IVs were established and IV fluids were initiated and he was placed on supplemental oxygen by nasal cannula. Patient's heart rate was in the 180s to 200s with a stable blood pressure, EKG shows atrial fibrillation with RVR with an underlying right bundle branch block and some mild [address] depression but this is unchanged from prior EKG. She was administered aspirin, and Cardizem bolus and drip were initiated for rate control. This helped to stabilize patient's heart rate and blood pressure remained between 90-100 SBP. Patient's portal chest x-ray was unremarkable for infiltrate. Patient had IV steroids and breathing treatments initiated as well. He was empirically covered with Levaquin for pulmonary symptoms. Patient with normal renal function but does have an elevated troponin today at 0.04. Unclear if this is rate related as patient may have been quite tachycardic from last 24 hours at this point. Patient will be admitted for febrile illness, acute bronchitis, acute exacerbation of COPD, chest pain with elevated troponin, and new-onset atrial fibrillation with RVR. This was discussed with the hospitalist and patient will be admitted for further evaluation, status much improved at this time.
[2017-05-24 11:47] LABS: Activated Partial Thrombo Time 27.4 Seconds (26.0-36.0)
[2017-05-24] MEDS: dilTIAZem HCl 100 MG in D5% in Water 50 ML IVC SCH (11:51)
[2017-05-24 11:52] LABS: Alanine Aminotransferase 18 Units/L (7-52); Albumin 4.1 g/dL (3.5-5.7); Albumin/Globulin Ratio 1.6 (1.1-2.2); Alkaline Phosphatase 119 Units/L (34-104); Aspartate Amino Transferase 19 Units/L (13-39); Bilirubin,Direct 0.1 mg/dL (0.0-0.2); Bilirubin,Indirect 0.4 mg/dL (0.0-1.2); Bilirubin,Total 0.5 mg/dL (0.3-1.0); Globulin 2.6 g/dL (2.4-3.5); Lipase 10 Units/L (11-82); Magnesium 1.5 mg/dL (1.6-2.6); Phosphorous 2.5 mg/dL (2.7-4.5); Total Protein 6.7 g/dL (6.4-8.9)
[2017-05-24 12:13] LABS: Bilirubin,Urine Negative (Negative); Blood,Urine Negative (Negative); Clarity,Urine Clear (Clear); Color,Urine Yellow (Yellow); Glucose,Urine (UA) Normal (Normal); Ketones,Urine Negative (Negative); Leukocyte Esterase,Urine Small (Negative); Nitrite,Urine Negative (Negative); Protein,Urine 30 mg/dL (Neg-Trace); Specific Gravity,Urine 1.022 (1.010-1.025); Urobilinogen,Urine Normal (Normal)
[2017-05-24 12:15] LABS: Bacteria,Urine None Seen per hpf (None-Few); Hyaline Casts,Urine None Seen per lpf (None-Few); Squamous Epithelial Cell,Urine None Seen per lpf (None-Few)
[2017-05-24] MEDS ORDERED: 0.9 % Sodium Chloride 500 ML IVC ONE (12:59)
[2017-05-24] MEDS ORDERED: Ibuprofen 400 MG TABLET PO ONE ×2 (14:11→23:13)
[2017-05-24] MEDS ORDERED: Albuterol 2.5 MG/3 ML NEBULIZER IH PRN (16:20)
[2017-05-24] MEDS ORDERED: Naloxone 0.4 MG/ML INJ IVP PRN (16:22)
[2017-05-24 16:27] LABS: ABG Base Excess -4 mEq/L (-2 to 3); ABG HCO3 24 mEq/L (21-27); ABG Oxygen Saturation 99 % (95-98); ABG PCO2 57 mmHg (35-45); ABG PH 7.24 pH Units (7.32-7.45); ABG PO2 156 mmHg (85-104); ABG TCO2 26 mEq/L (20-26)
--- NOTE | 2017-05-24 16:39 | Internal Med History&Physical ---
<Thong Grayson - Last Filed: 05/24/17 19:40> Date of Encounter: 05/24/17 Time of Encounter: 16:36 Assessment and Plan (1) Sepsis Status: Acute Patient appears of sepsis secondary to UTI. Urinalysis positive for leukocyte esterase. Leukocytosis with WBC of 18.4. Additionally, the patient is tachycardic. Plan she will another is an additional underlying infection. The patient was in severe respiratory distress with diminished lungs Limited air movement. There is also immunocompromised with recent diagnosis of lung cancer. Chest x- ray showed no acute bony process, will obtain chest CTA for further evaluation. Send blood cultures X2 Urine culture sent Start empiric antibiotic therapy, vancomycin, Zosyn, Levaquin CTA chest DuoNeb every 4 hours, albuterol every 2 hours Solu-Medrol 40 mg every 6 hours Continuous telemetry, continuous O2 monitoring ABG now; resolved with rest or acidosis Place patient on BiPAP now Consult pulmonology-spoke with Dr. Schilling who has agreed to consult on the patient to provide further recommendations and evaluation Qualifiers: Sepsis type: sepsis due to unspecified organism Qualified Code(s): A41.9 - Sepsis, unspecified organism (2) UTI (urinary tract infection) Status: Acute Denies any hematuria, dysuria, or urgency. However, he does have a urinalysis positive for leukocyte esterase and leukocytosis with a WBC of 18.4. No other obvious infective sources. However will obtain blood cultures 2 for further evaluation Empiric Antibiotic therapy with vancomycin, Zosyn Urine sent for cultures, follow culture results Qualifiers: Urinary tract infection type: site unspecified Hematuria presence: without hematuria Qualified Code(s): N39.0 - Urinary tract infection, site not specified (3) Atrial fibrillation with RVR Status: Acute Presented with new A. fib RVR. He reports that he has had only one other event of atrial fibrillation that was shortly after a CABG in 2007. No electrolyte abnormalities noted. Diltiazem bolus IV push Diltiazem drip titrate to maintain heart rate less than 100 (4) Coronary artery disease Status: Acute Continue aspirin and beta romel Qualifiers: Coronary Disease-Associated Artery/Lesion type: [place] artery [place] vs. transplanted heart: [place] heart Associated angina: without angina Qualified Code(s): I25.10 - Atherosclerotic heart disease of [place] coronary artery without angina pectoris (5) Chest pain Status: Resolved Patient states chest pain had resolved prior to arrival. His chief complaint now is dyspnea Qualifiers: Chest pain type: unspecified Qualified Code(s): R07.9 - Chest pain, unspecified (6) Metastatic lung cancer (metastasis from lung to other site) Status: Acute New diagnosis of metastatic lung cancer in early April of this year. The patient has denied further evaluation or treatment from oncology. He is adamant that he does not want treatment Qualifiers: Laterality: right Qualified Code(s): C34.91 - Malignant neoplasm of unspecified part of right bronchus or lung (7) COPD (chronic obstructive pulmonary disease) Status: Chronic History of COPD. Currently experiencing severe dyspnea. However I do not feel is related to an exacerbation of COPD. I think pulmonary embolus as likely cause of his current respiratory distress. Continue bronchodilators Steroids IV push Start empiric antibody therapy See further plans above Qualifiers: COPD type: emphysema Emphysema type: unilateral Qualified Code(s): J43.0 - Unilateral pulmonary emphysema [MacLeod's syndrome] Internal Medicine - H&P: HPI Chief complaint: Severe dyspnea Admitted From: Home Plans for Post Hospital Care: Home History of present illness: Mr. Gurrola is a 72 year old male with PMH of COPD, HTN, recent diagnosis of lung cancer. Presents today at [facility] with chest pain, severe dyspnea, new atrial fibrillation. He reports that yesterday began experiencing nonexertional substernal chest pain/pressure and dyspnea. He reports that CP subsided as prior to arrival to the ED but he remains severely dyspneic. He has a new diagnosis of metastatic lung cancer which was diagnosed in early April of this year on a prior admission. CTA at that time reveals a right upper lobe malignancy with probable mediastinal invasion. Additionally there is hepatic metastatic disease present. Patient has refused chemotherapy or radiation and declined and oncology evaluation. Workup in the ED today included a CXR which showed no evidence of PNA. Additionally the patient has leukocytosis and a positive UA. Also of note he was found to be in A-fib RVR which is new to the patient. Past Med Surg Social Fam HX - Past Medical History Medical history: non-contributory, COPD, hypertension Psychiatric history: no psych history - Past Surgical History Surgical History: coronary bypass (CABG) - Social History Smoking Status: Current every day smoker Smokeless Tobacco Status: No Alcohol use: none Drug use: none - Family History Mother Hx Family Neurologic Disorders: Yes (cva) Internal Medicine - H&P: Meds Albuterol Sulfate [Proair Hfa] 2 puff IH Q4H PRN 05/07/17 [History] Ascorbic Acid [Vitamin C] 500 mg PO DAILY 05/07/17 [History] Cholecalciferol (D-3) [Vitamin D] 1,000 unit PO DAILY 05/07/17 [History] Cyanocobalamin (Vitamin B-12) [Vitamin B12] 1,000 mcg PO DAILY 05/07/17 [History ] Lisinopril [Zestril] 40 mg PO DAILY 05/07/17 [History] Metoprolol [Lopressor] 25 mg PO BID 05/07/17 [History] Niacin [Plain Niacin] 500 mg PO DAILY 05/07/17 [History] Triamterene/HCTZ 37.5/25mg [Dyazide] 1 tab PO DAILY 05/07/17 [History] Vitamin E Acid Succinate [Vitamin E] 400 units PO DAILY 05/07/17 [History] Aspirin 81 mg PO DAILY #30 tab.chew 05/08/17 [Rx] Albuterol Neb [Proventil Neb] 2.5 mg IH Q2H PRN #24 vial.neb 05/25/17 [Rx] HYDROcodone/Acet 5/325 mg [[place] 5-325 mg] 1 tab PO Q4H PRN #12 tab 05/25/17 [Rx ] LORazepam Oral Conc [Ativan Oral Conc] 1 mg PO Q6HR PRN #15 mls 05/25/17 [Rx] Nebulizer/Compressor [[place] Nebulizer] 1 each AD #1 each 05/25/17 [Rx ] Albuterol Sulfate [Albuterol Inhaler] 2 puff IH Q4H PRN #1 inh 05/26/17 [Rx] Diltiazem CD (24hr) [Cardizem CD] 120 mg PO DAILY #60 cap.er.24h 05/26/17 [Rx] Oseltamivir [Tamiflu] 75 mg PO BID #5 capsule 05/26/17 [Rx] PredniSONE [Deltasone] See Taper PO DAILY #30 tablet 05/26/17 [Rx] 3 Allergy/AdvReac Type Severity Reaction Status Date / Time Sulfa (Sulfonamide Allergy Hives Verified 05/07/17 18:08 Antibiotics) morphine AdvReac "Makes me Verified 05/07/17 18:08 crazy" All Systems PM: A 10-system review of systems was performed and is negative for pertinent findings except as documented above in the HPI. Review of systems: GENERAL: Negative for any nausea, vomiting. Positive for fever, chills, weight loss NEUROLOGIC: Negative for any blurry vision, blind spots, double vision, facial asymmetry, dysphagia, dysarthria, hemiparesis, hemisensory deficits, vertigo, ataxia. HEENT: Negative for any head trauma, neck trauma, neck stiffness, photophobia, phonophobia, sinusitis, rhinitis. CARDIAC: Positive for nonexertional, nonradiating midsternal chest pain, tachycardia , palpitations and dyspnea Negative for any peripheral edema. PULMONARY: Positive for severe dyspnea, nonproductive cough GASTROINTESTINAL: Negative for any abdominal pain, nausea, vomiting, bright red blood per rectum, melena. GENITOURINARY: Negative for any dysuria, hematuria, incontinence. INTEGUMENTARY: Negative for any rashes, cuts, insect bites. RHEUMATOLOGIC: Negative for any joint pains, photosensitive rashes, history of vasculitis or kidney problems. HEMATOLOGIC: Negative for any abnormal bruising, frequent infections or bleeding. - Constitutional Vitals: Temp Pulse Resp BP Pulse Ox 97.8 F 117 20 124/70 94 05/24/17 15:50 05/24/17 15:50 05/24/17 15:50 05/24/17 15:50 05/24/17 15:50 General appearance: Present: A&O X 3, severe distress, answers questions appropriately Exam: PHYSICAL EXAMINATION: GENERAL: The patient is a 72-year-old male appearing to be in poor health and in severe respiratory distress. He is alert and oriented x3. VITAL SIGNS: Heart rate-117, respiratory rate-20, 92% on 5 L nasal cannula with difficulty maintaining O2 saturations, BP-124/70 HEENT: Head is normocephalic and atraumatic. Extraocular muscles are intact. Pupils are equal, round, and reactive to light and accommodation. Nares appeared normal. Mouth is well hydrated and without lesions. Mucous membranes are moist. Posterior pharynx clear of any exudate or lesions. NECK: Supple. No carotid bruits. No lymphadenopathy or thyromegaly. LUNGS: Very diminished with limited air movement, fine expiratory wheezing noted on expiration. Patient is tachypneic with accessory muscle usage and appears to be in severe respiratory distress 5 L nasal cannula with difficulty maintaining O2 saturation HEART: Irregular rate and rhythm with a rate of 117's no murmur noted. ABDOMEN: Soft, nontender, and nondistended. Positive bowel sounds. No hepatosplenomegaly was noted. EXTREMITIES: Without any cyanosis, clubbing, rash, lesions or edema. NEUROLOGIC: Alert and oriented 3, no facial droop,deficits PSYCHIATRIC: Flat affect, but denies suicidal or homicidal ideations. SKIN: No ulceration or induration present. Internal Med - H&P Results - Labs CBC & Chem 7: 05/24/17 10:31 05/24/17 10:31 - ABG Interpretation ABG results: 05/24/17 16:24 ABG pH 7.24 L ABG pCO2 57 H ABG pO2 156 H ABG HCO3 24 ABG Total CO2 26 ABG O2 Saturation 99 H ABG Base Excess -4 L - EKG Data -: EKG Interpreted by Myself - EKG Data Prior EKG available for review: yes When compared to previous EKG: there are significant changes EKG comments: Atrial fibrillation with rapid ventricular response. 05/24/17 16:50 - Diagnostic Studies Chest x-ray Status: image reviewed by me Additional comments: No acute pulmonary process <Dayna Brown - Last Filed: 06/22/17 09:11> Date of Encounter: 06/22/17 Internal Medicine - H&P: HPI History of present illness: Mr. Gurrola is a 72 year old male All Systems PM: A 10-system review of systems was performed and is negative for pertinent findings except as documented above in the HPI. - Constitutional Vitals: Temp Pulse Resp BP Pulse Ox 98.3 F 82 16 114/74 94 05/26/17 07:46 05/26/17 07:46 05/26/17 07:52 05/26/17 07:46 05/26/17 07:52 Internal Med - H&P Results - Labs CBC & Chem 7: 05/25/17 03:41 05/25/17 03:41 - ABG Interpretation ABG results: 05/24/17 16:24 ABG pH 7.24 L ABG pCO2 57 H ABG pO2 156 H ABG HCO3 24 ABG Total CO2 26 ABG O2 Saturation 99 H ABG Base Excess -4 L - Impressions ITS Impressions Chest CTA 05/24/17 16:52 IMPRESSION: Negative study for pulmonary embolism. Stable exam from 05/08/2017 with stable appearance to spiculated masslike opacity medially to the right upper lobe concerning for neoplastic process along with hepatic metastatic disease as well as likely metastatic mediastinal and right hilar lymphadenopathy as well as right paraesophageal lymphadenopathy. Emphysema. D/ /24/2017 19:14:35 Ez Vogt MD / raul Interpreting Provider: Ez Vogt MD Echocardiogram 05/25/17 09:59 Impressions: LVEF 60%. Mild concentric left ventricular hypertrophy. Mild left ventricular diastolic dysfunction. RV size is not well visualized. Overall, function appears normal. No significant valvular dysfunction. No pulmonary hypertension. Left Ventricular Wall Motion: Rest Echo Findings All wall segments showed normal motion. Findings: Study Quality * Technically adequate exam. ECG Findings * Normal sinus rhythm. Left Ventricle * LVEF 60%. * Mild concentric left ventricular hypertrophy. * Normal LV size. * Mild left ventricular diastolic dysfunction. Right Ventricle * RV size is not well visualized. Overall, function appears normal. Left Atrium * Normal left atrial size. Right Atrium * Normal right atrial size. Aortic Valve * No aortic regurgitation. * Aortic valve not well visualized. * No aortic stenosis. Mitral Valve * Normal mitral valve structure. * No mitral regurgitation. * No mitral stenosis. Tricuspid Valve * No tricuspid regurgitation. * Estimated RA pressure is 8 mmHg. * Normal tricuspid valve structure. Pulmonic Valve * Pulmonic valve is not well visualized. * No pulmonic stenosis. * No pulmonic regurgitation. Pulmonary Artery * Pulmonary artery not well visualized. Aorta * Normally sized aortic root. Pericardium * There is no pericardial effusion present. Interatrial Septum * No evidence of PFO by color Doppler. * Lipomatous interatrial septum. IVC * The IVC is dilated. * > 50% respiratory change - Attending Attestation I personally and independently interviewed and examined the patient with [employer], and I reviewed the patient's medical record with her. I am in agreement with the assessment and proposed treatment plan. I discussed my findings and recommendation with the patient and answer all questions. The patient's medical records were edited to accurately reflect this encounter.
--- NOTE | 2017-05-24 16:58 | Pulmonology Consult Note ---
Date of Encounter: 05/24/17 Time of Encounter: 16:58 Assessment and Plan (1) Acute respiratory failure with hypoxia and hypercapnia Current Visit: Yes Status: Acute This is multifactorial in 2 what I suspect his underlying pneumonia although not evidence on chest x-ray which is leading to acute COPD exacerbation. Notably patient has a high pretest probability for pulmonary malaise given likely underlying malignancy coupled with hypoxia and acute atrial fibrillation. In addition with acute atrial fibrillation and underlying coronar artery disease I suspect the possibility of pulmonary edema (CHF) could also be contributing esspecially given elevated BNP on admission. I would recommend the use of noninvasive positive pressure ventilation for correction of respiratory acidosis patient is currently refusing this He also is refusing endotracheal intubation if respiratory failure progresses Estuardo that this could lead to his demise Recommend sending for CTA on urgent basis with administration of empiric heparin for possibility of PE until this is ruled out and also for consideration of cardiac cause such as ACS. Continue supplemental oxygen to keep saturation greater than 88% Consider Lasix 20 mg 1 times dose monitor urine output and electrolytes per primary service his magnesium is already on the lower side and should be replaced for goal >2.0 (2) COPD (chronic obstructive pulmonary disease) with acute bronchitis Current Visit: Yes Status: Acute AECOPD I suspect related to underlying pneumonia (nasal influenza swab negative) Send sputum and blood cultures 2 Send urine Legionella and strep pneumo antigen Send respiratory infection panel Agree with Levchencho would add vancomycin for MRSA coverage plan a de-escalate and 48 hours if cultures negative for MRSA Schedule bronchodilators every 4 hours (duo nebs) with albuterol every 1 hour as needed Solu-Medrol IV 40 mg every 8 hours (3) Atrial fibrillation with RVR Current Visit: Yes Status: Acute This is being managed by the primary hospitalist service is currently on a diltiazem drip clearly his rapid ventricular rate was admitted respiratory acute CHF (4) Elevated troponin Current Visit: Yes Status: Acute Possibly related to demand ischemia from hypoxia from COPD exacerbation and possible pneumonia. However have concern for underlying pulmonary embolus as outlined above. He does have a history of coronary artery disease and ACOS is not excluded. Consider cardiology consultation and formal echocardiogram. (5) Metastatic lung cancer (metastasis from lung to other site) Current Visit: Yes Status: Acute Patient has radiographic concern for primary lung malignancy with this strong smoking history along with evidence of distant metastatic disease. He is adamant that he is not on any evaluation for this when I asked him why he said he had a stepson who from melanoma and wanted this with a process I explained to him that cancers are not all treated the same innervated response is different he said he still not interested. His and his aunt were at bedside for this conversation Qualifiers: Laterality: right Qualified Code(s): C34.91 - Malignant neoplasm of unspecified part of right bronchus or lung (6) Goals of care, counseling/discussion Current Visit: Yes Status: Acute Patient was adamant with me that he did not want endotracheal intubation even if it meant he would pass away. He is also stated that he does not want "to be brought back if he dies". I recommended formal palliative care consultation History of Present Illness Consult date: 05/24/17 Requesting physician: Thong Grayson Reason for consult: hypoxemia Chief complaint: Shortness of Breath History of present illness: This is a 72-year-old child with past medical history of COPD and coronary artery disease status post CABG presented to ED with chest pain and shortness of breath along with cough and fever. Noted be hypoxic and febrile admissions the ED also with atrial fibrillation with RVR chest x-ray was unremarkable. Since admission his had progressive dyspnea with worsening hypoxemia ABG was notable for hypoxia and respiratory acidosis prompting pulmonary consultation. He denies hemoptysis or lower extremity swelling calf tenderness or weight loss He was recently admitted at the early part of of this month for chest pain and workup revealed a large right upper lobe mass with invasion into the mediastinum concerning for primary lung malignancy with evidence of diffuse lymphadenopathy and distant metastatic disease. He was evaluated for possible cardiac ischemia and at discharge was given instruction follow-up with oncology however the patient says that he did not do it of his own accord because he did not want any treatment for cancer even if diagnosed Patient is a lifelong smoker from the age of 12 about a pack a day until the present time. 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 No family history of lung malignancy or lung disease that he is aware Past Med Surg Social Fam HX - Past Medical History Medical history: non-contributory, COPD, hypertension Psychiatric history: no psych history - Past Surgical History Surgical History: coronary bypass (CABG) - Social History Smoking Status: Current every day smoker Smokeless Tobacco Status: No Alcohol use: none Drug use: none - Family History Mother Name: corrina Living Status: Age at : 82 Hx Family Neurologic Disorders: Yes (cva) Medications and Allergies Albuterol Sulfate [Proair Hfa] 2 puff IH Q4H PRN 05/07/17 [History] Ascorbic Acid [Vitamin C] 500 mg PO DAILY 05/07/17 [History] Cholecalciferol (D-3) [Vitamin D] 1,000 unit PO DAILY 05/07/17 [History] Cyanocobalamin (Vitamin B-12) [Vitamin B12] 1,000 mcg PO DAILY 05/07/17 [History ] Lisinopril [Zestril] 40 mg PO DAILY 05/07/17 [History] Metoprolol [Lopressor] 25 mg PO BID 05/07/17 [History] Niacin [Plain Niacin] 500 mg PO DAILY 05/07/17 [History] Triamterene/HCTZ 37.5/25mg [Dyazide] 1 tab PO DAILY 05/07/17 [History] Vitamin E Acid Succinate [Vitamin E] 400 units PO DAILY 05/07/17 [History] Aspirin 81 mg PO DAILY #30 tab.chew 05/08/17 [Rx] 3 Allergy/AdvReac Type Severity Reaction Status Date / Time Sulfa (Sulfonamide Allergy Hives Verified 05/07/17 18:08 Antibiotics) morphine AdvReac "Makes me Verified 05/07/17 18:08 crazy" All Systems: A 10-system review of systems was performed and is negative for pertinent findings except as documented above in the HPI. Physical Examination Vital Signs: Vital Signs, Last 4 Hours Temp Pulse Resp BP Pulse Ox 05/24/17 15:50 97.8 F 117 20 124/70 94 05/24/17 15:47 97.8 F 124/70 05/24/17 14:12 20 97/52 General appearance: appears uncomfortable Eyes: nonicteric ENT: oropharynx moist Neck: no lymphadenopathy Effort: very labored Auscultation: bilateral: diminished breath sounds, wheezes (Faint inspiratory expiratory wheeze) Cardiovascular: irregular rhythm Gastrointestinal: normoactive bowel sounds Integumentary: normal Extremities: no cyanosis, no edema, no clubbing normal mental status, non-focal exam anxious Results - Laboratory Findings CBC and BMP: 05/24/17 10:31 05/24/17 10:31 ABG ABG pH 7.24 pH Units (7.32-7.45) L 05/24/17 16:24 ABG pCO2 57 mmHg (35-45) H 05/24/17 16:24 ABG pO2 156 mmHg (85-104) H 05/24/17 16:24 ABG O2 Saturation 99 % (95-98) H 05/24/17 16:24 PT/INR, D-dimer PT 11.6 Seconds (9.4-12.1) 05/24/17 10:31 Abnormal lab findings: Abnormal lab results WBC 18.4 K/mcL (4.3-11.1) H 05/24/17 10:31 RDW 14.6 % (11.5-14.5) H 05/24/17 10:31 MPV 9.3 fL (9.4-12.4) L 05/24/17 10:31 Neutrophils # 15.2 K/mcL (1.6-8.9) H 05/24/17 10:31 Monocytes # 2.1 K/mcL (0.0-1.3) H 05/24/17 10:31 ABG pH 7.24 pH Units (7.32-7.45) L 05/24/17 16:24 ABG pCO2 57 mmHg (35-45) H 05/24/17 16:24 ABG pO2 156 mmHg (85-104) H 05/24/17 16:24 ABG O2 Saturation 99 % (95-98) H 05/24/17 16:24 ABG Base Excess -4 mEq/L (-2 to 3) L 05/24/17 16:24 Carbon Dioxide 30 mEq/L (23-29) H 05/24/17 10:31 BUN 26 mg/dL (8-23) H 05/24/17 10:31 Glucose 118 mg/dL (70-105) H 05/24/17 10:31 Calcium 10.8 mg/dL (8.6-10.3) H 05/24/17 10:31 Phosphorus 2.5 mg/dL (2.7-4.5) L 05/24/17 10:31 Magnesium 1.5 mg/dL (1.6-2.6) L 05/24/17 10:31 Alkaline Phosphatase 119 Units/L (34-104) H 05/24/17 10:31 Troponin I 0.04 ng/mL (< 0.04) H* 05/24/17 10:31 B-Natriuretic Peptide 159 pg/mL (Less than 100) H 05/24/17 10:52 Lipase 10 Units/L (11-82) L 05/24/17 10:31 Urine Protein 30 mg/dL (Neg-Trace) H 05/24/17 11:55 Ur Leukocyte Esterase Small (Negative) H 05/24/17 11:55 Urine Microscopic RBC 5-15 per hpf (0-3) H 05/24/17 11:55 Urine Microscopic WBC 3-5 per hpf (0-3) H 05/24/17 11:55 Ur Culture Indicated? YES (NO) A 05/24/17 11:55 - Clinical Findings Intake & Output: Intake & Output 05/24/17 05/24/17 05/24/17 07:59 15:59 23:59 Intake Total 150 / 2170 Balance 150 / 2170 Consult Discharge Plan - Plan Referrals: Benny Garcia MD [Primary Care Provider] -
[2017-05-24] MEDS ORDERED: *HR* Heparin 5,000 UNIT/ML VIAL IVP ONE (17:57)
[2017-05-24] MEDS ORDERED: *HR* Heparin 5,000 UNIT/ML VIAL IVP PRN ×2 (17:57)
[2017-05-24] MEDS ORDERED: Heparin 25,000 UNIT/500 ML D5W 25,000 UNIT/500 ML BAG IVC SCH (18:00)
[2017-05-24] MEDS ORDERED: *HR* Heparin 5,000 UNIT/ML VIAL SQ SCH (18:00)
[2017-05-24] MEDS: MethylPREDNISolone 40 MG/ML VIAL IVP SCH (19:00)
[2017-05-24] MEDS: Ipratropium/Albuterol Neb 3 ML IH SCH ×2 (19:47→23:34)
[2017-05-24] MEDS: Vancomycin 1,000 MG in D5% in Water 250 ML IVPB SCH (20:02)
[2017-05-24] MEDS: *HR* Heparin 5,000 UNIT/ML VIAL SQ SCH (20:03)
[2017-05-24] MEDS ORDERED: Acetaminophen 325 MG TABLET PO PRN (23:12)
[2017-05-25] MEDS ORDERED: Piperacillin/Tazobactam 3.375 GM/200 ML BAG IVPB SCH
[2017-05-25] MEDS: MethylPREDNISolone 40 MG/ML VIAL IVP SCH ×4 (00:11→16:08)
[2017-05-25] MEDS: Piperacillin/Tazobactam 3.375 GM/200 ML BAG IVPB SCH ×2 (02:06→09:22)
[2017-05-25] MEDS: Ipratropium/Albuterol Neb 3 ML IH SCH ×6 (04:14→23:47)
[2017-05-25 04:25] LABS: Basophils % 0.2 %; Hematocrit 46.4 % (37.5-50.1); Hemoglobin 15.1 g/dL (12.9-16.9); Immature Granulocytes % 0.5 % (0-4); Lymphocytes # 0.3 K/mcL (0.6-4.6); Lymphocytes % 2.3 %; Mean Corpuscular HGB Conc 32.5 g/dL (31.6-35.5); Mean Corpuscular Volume 95.3 fL (83.0-100.0); Mean Platelet Volume 9.7 fL (9.4-12.4); Monocytes # 0.4 K/mcL (0.0-1.3); Monocytes % 3.1 %; Neutrophils # 11.2 K/mcL (1.6-8.9); Platelet Count 229 K/mcL (140-400); Red Blood Count 4.87 M/mcL (4.19-5.50); Red Cell Distribution Width 14.6 % (11.5-14.5); Segmented Neutrophils % 93.9 %
[2017-05-25 04:51] LABS: BUN/Creatinine Ratio 31 (6-26); Blood Urea Nitrogen 27 mg/dL (8-23); Calcium 9.9 mg/dL (8.6-10.3); Carbon Dioxide 24 mEq/L (23-29); Chloride 106 mEq/L (98-107); Glucose 139 mg/dL (70-105); Osmolality,Calculated 295 (280-300); Sodium 139 mEq/L (136-145); eGFR For African Americans > 60 (> 60); eGFR For Non-African Americans > 60 (> 60)
[2017-05-25] MEDS: Vancomycin 1,000 MG in D5% in Water 250 ML IVPB SCH (06:02)
[2017-05-25] MEDS: *HR* Heparin 5,000 UNIT/ML VIAL SQ SCH ×2 (06:03→16:07)
[2017-05-25] MEDS: dilTIAZem HCl 100 MG in D5% in Water 50 ML IVC SCH (06:04)
[2017-05-25 08:16] LABS: Magnesium 1.7 mg/dL (1.6-2.6); Phosphorous 4.4 mg/dL (2.7-4.5)
[2017-05-25 08:46] LABS: Adenovirus Not Detected (Not Detect); Bordetella Pertussis Not Detected (Not Detect); Chlamydophila pneumoniae Not Detected (Not Detect); Coronavirus 229E Not Detected (Not Detect); Coronavirus HKU1 Not Detected (Not Detect); Coronavirus NL63 Not Detected (Not Detect); Coronavirus OC43 Not Detected (Not Detect); Human Metapneumovirus Not Detected (Not Detect); Human Rhinovirus/Enterovirus Not Detected (Not Detect); Influenza A Subtype 2009 H1 Not Detected (Not Detect); Influenza A Untypeable Not Detected (Not Detect); Influenza B Not Detected (Not Detect); Mycoplasma pneumoniae Not Detected (Not Detect); Parainfluenza Virus 1 Not Detected (Not Detect); Parainfluenza Virus 2 Not Detected (Not Detect); Parainfluenza Virus 3 Not Detected (Not Detect); Parainfluenza Virus 4 Not Detected (Not Detect); Respiratory Syncytial Virus Not Detected (Not Detect)
--- NOTE | 2017-05-25 08:47 | Pulmonology Progress Note ---
Date of Encounter: 05/25/17 Time of Encounter: 08:47 Assessment and Plan (1) Acute respiratory failure with hypoxia and hypercapnia Current Visit: Yes Status: Acute This is secondary to influenza pneumonia with COPD exacerbation complicated by underlying by presumed metastatic lung cancer. CTA of the chest negative for pulmonary embolus .This is improved in last 24 hours continue supplemental oxygen to keep saturation greater than 88-92%. Encourage incentive spirometry out of bed to chair and ambulation as he continues to improve (2) COPD (chronic obstructive pulmonary disease) with acute bronchitis Current Visit: Yes Status: Acute transition to oral prednisone 40 mg to taper over 2 weeks ID the patient should be set up with nebulizer machine for home going DuoNeb's should be scheduled every 6 hours with albuterol every hour as needed Smoking cessation encouraged (3) Atrial fibrillation with RVR Current Visit: Yes Status: Acute This is being managed by the primary hospitalist service cardiology is also seen the patient (4) Elevated troponin Current Visit: Yes Status: Acute Possibly demand ischemia in the setting of underlying coronary artery disease cardiology following (5) Metastatic lung cancer (metastasis from lung to other site) Current Visit: Yes Status: Acute Patient again refusing further evaluation of this Qualifiers: Qualified Code(s): C34.91 - Malignant neoplasm of unspecified part of right bronchus or lung (6) Goals of care, counseling/discussion Current Visit: Yes Status: Acute Recommend formal palliative care consult to establish patient's goals of care pending further hospitalization Subjective Principal diagnosis: Pneumonia Interval history: Is feeling better today noted to have influenza A on respiratory infectious panel. Chest pain has stopped Objective PUL Vital signs: Last Vital Signs Temp 98.0 F 05/25/17 07:15 Pulse 70 05/25/17 07:15 Resp 16 05/25/17 08:11 BP 114/63 05/25/17 07:15 Pulse Ox 95 05/25/17 08:11 General appearance: no acute distress Effort: normal Auscultation: bilateral: diminished breath sounds, rhonchi Cardiovascular: irregular rhythm Gastrointestinal: soft Integumentary: normal Extremities: no cyanosis normal mental status, non-focal exam Results - Laboratory Findings CBC and BMP: 05/25/17 03:41 05/25/17 03:41 ABG ABG pH 7.24 pH Units (7.32-7.45) L 05/24/17 16:24 ABG pCO2 57 mmHg (35-45) H 05/24/17 16:24 ABG pO2 156 mmHg (85-104) H 05/24/17 16:24 ABG O2 Saturation 99 % (95-98) H 05/24/17 16:24 PT/INR, D-dimer PT 11.6 Seconds (9.4-12.1) 05/24/17 10:31 Abnormal lab findings: Abnormal lab results WBC 11.9 K/mcL (4.3-11.1) H 05/25/17 03:41 RDW 14.6 % (11.5-14.5) H 05/25/17 03:41 Neutrophils # 11.2 K/mcL (1.6-8.9) H 05/25/17 03:41 Lymphocytes # 0.3 K/mcL (0.6-4.6) L 05/25/17 03:41 ABG pH 7.24 pH Units (7.32-7.45) L 05/24/17 16:24 ABG pCO2 57 mmHg (35-45) H 05/24/17 16:24 ABG pO2 156 mmHg (85-104) H 05/24/17 16:24 ABG O2 Saturation 99 % (95-98) H 05/24/17 16:24 ABG Base Excess -4 mEq/L (-2 to 3) L 05/24/17 16:24 BUN 27 mg/dL (8-23) H 05/25/17 03:41 BUN/Creatinine Ratio 31 (6-26) H 05/25/17 03:41 Glucose 139 mg/dL (70-105) H 05/25/17 03:41 POC Glucose 104 (58-89) H 05/24/17 17:18 Alkaline Phosphatase 119 Units/L (34-104) H 05/24/17 10:31 Troponin I 0.13 ng/mL (< 0.04) H* 05/24/17 22:40 B-Natriuretic Peptide 159 pg/mL (Less than 100) H 05/24/17 10:52 Lipase 10 Units/L (11-82) L 05/24/17 10:31 Urine Protein 30 mg/dL (Neg-Trace) H 05/24/17 11:55 Ur Leukocyte Esterase Small (Negative) H 05/24/17 11:55 Urine Microscopic RBC 5-15 per hpf (0-3) H 05/24/17 11:55 Urine Microscopic WBC 3-5 per hpf (0-3) H 05/24/17 11:55 Ur Culture Indicated? YES (NO) A 05/24/17 11:55 Influenza A (H3) PCR DETECTED (Not Detect) A 05/25/17 05:15 - Diagnostic Findings CT scan - chest: report reviewed, image reviewed - Clinical Findings Intake & Output: Intake & Output 05/24/17 05/25/17 05/25/17 23:59 07:59 15:59 Intake Total 500 / 500 Output Total 575 / 575 200 / 200 Balance -575 / -575 300 / 300 Weight 68.6 kg 66.2 kg Consult Discharge Plan - Plan Referrals: Benny Garcia MD [Primary Care Provider] - Prescriptions: LORazepam Oral Conc [Ativan Oral Conc] 1 mg PO Q6HR PRN #15 mls PRN Reason: Anxiety Albuterol Neb [Proventil Neb] 2.5 mg IH Q2H PRN #24 vial.neb PRN Reason: Dyspnea HYDROcodone/Acet 5/325 mg [[place] 5-325 mg] 1 tab PO Q4H PRN #12 tab PRN Reason: Cancer Pain Nebulizer/Compressor [[place] Choice Nebulizer] 1 each AD #1 each
[2017-05-25] MEDS ORDERED: Levofloxacin 750 MG/150 ML 750 MG/150 ML BAG IVPB SCH (09:00)
[2017-05-25] MEDS: Ascorbic Acid 500 MG TABLET PO SCH (09:09)
[2017-05-25] MEDS: Lisinopril 20 MG TABLET PO SCH (09:10)
[2017-05-25] MEDS: Cholecalciferol (D-3) 1,000 UNIT TABLET PO SCH (09:10)
[2017-05-25] MEDS: Cyanocobalamin (B-12) 1,000 MCG TABLET PO SCH (09:10)
[2017-05-25] MEDS: Aspirin 81 MG TAB.CHEW PO SCH (09:10)
--- NOTE | 2017-05-25 09:12 | Electrocardiograph Report ---
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
--- NOTE | 2017-05-25 09:25 | Electrocardiograph Report ---
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1945 Requested By: Cari Duran Order Number: [id number] Reading MD: Nidia Castellon Measurements Intervals [place] Rate: 145 P: 77 [place]: 137 QRS: 95 QRSD: 101 T: 75 QT: 353 QTc: 437 Interpretive Statements SINUS TACHYCARDIA, POSSIBLE ATRIAL FLUTTER BORDERLINE RIGHT AXIS DEVIATION [QRS AXIS > 90] LOW QRS VOLTAGE IN EXTREMITY LEADS [QRS DEFLECTION < 0.5 mV IN LIMB LEADS] INCOMPLETE RIGHT BUNDLE BRANCH BLOCK [90+ ms QRS DURATION, TERMINAL R IN V1/V2, 40+ ms S IN I/aVL/V4/V5/V6] MARKED ST DEPRESSION, CONSIDER SUBENDOCARDIAL INJURY [0.2+ mV ST DEPRESSION] Electronically Signed On 05-25-2017 9:24:13 EST by Nidia Castellon
--- NOTE | 2017-05-25 09:27 | Electrocardiograph Report ---
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
[2017-05-25] MEDS: Diltiazem CD (24hr) 120 MG CAPSULE PO SCH (10:35)
[2017-05-25] MEDS ORDERED: Aminoglycoside Consult 1 EACH MC ONE (11:29)
--- NOTE | 2017-05-25 12:02 | Cardiology Consult Note ---
<Klever Suresh Andrew - Last Filed: 05/25/17 13:09> Date of Encounter: 05/25/17 - Attending Attestation I have personally performed a face to face evaluation on this patient. I have reviewed and agree with the care plan. History and Exam by me shows: IMP; 1. Chest Pain: Chest pain with exertion consistent with previous anginal symptoms, accompanied by shortness of breath, started when walking to bathroom, relieved with rest, has not reoccurred during hospitalization. Long conversation with pt and at bedside, decline invasive strategy, requests medial tx only, agree in light of extensive metastatic disease. Add ntg 0.4mg sl q 5 mins prn chest pain. 2. Atrial tach: documented on admission, heart rate in 140s, slowed to normal on diltiazem infusion, will change IV to po, 3. Elevated troponin: suspect demand ischemia, not a candidate for invasive strategy, continue medical tx, reviewed last stress test was normal 06/08/16 4. Metastatic lung cancer: suspected, pt refuses biopsy, treatment, prognosis dismal. Assessment and Plan Discussion w patient/family: The assessment and plan as outlined above was discussed with the patient and/or family members who expressed understanding and agreement. All questions were answered. Thank you for involving us in the care of your patient. Please call with any questions. History of Present Illness History of present illness: Mr. Gurrola is a 72 year old male Medications and Allergies Albuterol Sulfate [Proair Hfa] 2 puff IH Q4H PRN 05/07/17 [History] Ascorbic Acid [Vitamin C] 500 mg PO DAILY 05/07/17 [History] Cholecalciferol (D-3) [Vitamin D] 1,000 unit PO DAILY 05/07/17 [History] Cyanocobalamin (Vitamin B-12) [Vitamin B12] 1,000 mcg PO DAILY 05/07/17 [History ] Lisinopril [Zestril] 40 mg PO DAILY 05/07/17 [History] Metoprolol [Lopressor] 25 mg PO BID 05/07/17 [History] Niacin [Plain Niacin] 500 mg PO DAILY 05/07/17 [History] Triamterene/HCTZ 37.5/25mg [Dyazide] 1 tab PO DAILY 05/07/17 [History] Vitamin E Acid Succinate [Vitamin E] 400 units PO DAILY 05/07/17 [History] Aspirin 81 mg PO DAILY #30 tab.chew 05/08/17 [Rx] Nebulizer/Compressor [[place] Choice Nebulizer] 1 each AD #1 each 05/25/17 [Rx ] 3 Allergy/AdvReac Type Severity Reaction Status Date / Time Sulfa (Sulfonamide Allergy Hives Verified 05/07/17 18:08 Antibiotics) morphine AdvReac "Makes me Verified 05/07/17 18:08 crazy" All Systems Review: A 10-system review of systems was performed and is negative for pertinent findings except as documented above in the HPI. Physical Examination Vital Signs, Last 4 Hours Temp Pulse Resp BP Pulse Ox 05/25/17 11:30 98.0 F 82 16 138/67 97 05/25/17 10:34 98.0 F 82 16 138/67 97 Results 05/25/17 03:41 05/25/17 03:41 Lab Results 05/24/17 05/24/17 05/25/17 16:45 22:40 03:41 WBC 11.9 H Hgb 15.1 Hct 46.4 Plt Count 229 Sodium Potassium Chloride Carbon Dioxide BUN Creatinine Glucose Calcium Magnesium Troponin I 0.14 H* 0.13 H* 05/25/17 03:41 WBC Hgb Hct Plt Count Sodium 139 Potassium 4.0 Chloride 106 Carbon Dioxide 24 BUN 27 H Creatinine 0.87 Glucose 139 H Calcium 9.9 Magnesium 1.7 Troponin I Consult Discharge Plan - Plan Referrals: Benny Garcia MD [Primary Care Provider] - Prescriptions: Nebulizer/Compressor [[place] Choice Nebulizer] 1 each AD #1 each <Klarissa Jasmine - Last Filed: 05/25/17 14:12> Date of Encounter: 05/25/17 Time of Encounter: 09:00 Assessment and Plan (1) Influenza Current Visit: Yes Status: Acute Per cardiology: -Influenza A positive. -Management per primary service. (2) Chest pain Current Visit: Yes Status: Resolved Per cardiology: -Had chest pain at home during episode of shortness of breath while walking to bathroom. -ECG with no acute ischemic changes. -Denies current chest pain. -Stress 05/08/2017 negative for ischemia or infarct. -[facility] 2010 with patent 2/2 bypass grafts. -Will check TTE. Qualifiers: Chest pain type: unspecified Qualified Code(s): R07.9 - Chest pain, unspecified (3) Tachycardia Current Visit: Yes Status: Acute Per cardiology: -Tachycardic on admission with HR 140s. -Sinus tachycardia versus atrial flutter. -Was started on cardizem drip. -Now SR with average HR 80. -Chads 2vasc score 3 (age, HTN, vascular disease). Would ideally be on anticoagulation, however has known metastic CA with no recent brain scans. Patient will be admitted to inpatient hospice tomorrow. -CArdizem changed to po. -TTE pending. -Will not start anticoagulation as Patient is being admitted to inpatient hospice tomorrow with plans to go home with hospice. (4) Elevated troponin Current Visit: Yes Status: Acute Per cardiology: -Troponins 0.04, 0.14, 0.13. -Troponins flat and adynamic in the setting of influenza, tachycardia, CKD, mets cancer. -Had chest pain prior to admission. -Denies current chest pain. -ECG with no acute ischemic changes. -Stress 05/08/17 negative for ischemia or infarct -[facility] 2010 with patent 2/2 bypass grafts. -WIll check TTE. -Do not suspect NSTEMI, suspect demand ischemia related to above. NO cardiac rehab warranted at this time. (5) Coronary artery disease Current Visit: Yes Status: Chronic Per cardiology: -[place] CAD with CABG 2007 -[facility] 2010 with patent 2/2 bypass grafts. -on asa, beta romel. -Not on statin due to hepatic mets. -TTE pending. Qualifiers: Coronary Disease-Associated Artery/Lesion type: [place] artery [place] vs. transplanted heart: [place] heart Associated angina: without angina Qualified Code(s): I25.10 - Atherosclerotic heart disease of [place] coronary artery without angina pectoris (6) Metastatic lung cancer (metastasis from lung to other site) Current Visit: Yes Status: Acute Per cardiology: -Recent diagnosis of metastic lung cancer. -Declined work up, declines treatment. -Of note, code status DNR-CCA/DNI. -Management per primary service. Qualifiers: Laterality: right Qualified Code(s): C34.91 - Malignant neoplasm of unspecified part of right bronchus or lung Discussion w patient/family: The assessment and plan as outlined above was discussed with the patient and/or family members who expressed understanding and agreement. All questions were answered. Thank you for involving us in the care of your patient. Please call with any questions. Discussed and reviewed with . History of Present Illness Consult date: 05/24/17 Requesting physician: Bill Rayo Consult reason: a.fib RVR Chief complaint: chest pain History of present illness: Mr. Gurrola is a 72 year old male with a relevant past medical history of CAD s/ p CABG 2007, post op a.fib, metastatic lung CA-recently diagnosed, HTN, hyperlipidemia, COPD. Patient presented to [facility] with complaints of increased shortness of breath. Patient reports also had some chest pain. States chest pain and shortness of breath started while walking to bathroom. Patient denies aggravating or alleviating factors for chest pain. Patient states pain spontaneoulsy resolved. Patient denies palpitations or fluttering. Patient denies current chest pain. Patient states breathing is much improved since admission. Past Med Surg Social Fam HX - Past Medical History Attestation: Yes The following information was validated with the patient. Source: patient, old records reviewed, obtained from family Medical history: atrial fibrillation, cancer, COPD, coronary artery disease, hypertension Psychiatric history: no psych history - Past Surgical History Surgical History: coronary bypass (CABG) - Social History Smoking Status: Current every day smoker Smokeless Tobacco Status: No Alcohol use: none Drug use: none - Family History Mother Name: corrina Living Status: Age at : 82 Hx Family Neurologic Disorders: Yes (cva) All Systems Review: A 10-system review of systems was performed and is negative for pertinent findings except as documented above in the HPI. - Cardiovascular Cardiovascular: as per HPI, chest pain with exertion, dyspnea at rest, dyspnea on exertion Physical Examination Vital Signs, Last 4 Hours Temp Pulse Resp BP Pulse Ox 05/25/17 11:30 98.0 F 82 16 138/67 97 05/25/17 10:34 98.0 F 82 16 138/67 97 05/25/17 08:50 98.0 F 70 16 114/63 95 05/25/17 08:11 16 95 General: Conversant, Other (Mild conversational dyspnea noted. ) HEENT: Atraumatic, Normocephaly, Mucus Membranes Moist Neck: No JVD, Normal carotid pulses Cardiac: Reg Rate and Rhythm, Normal S1 and S2, No Murmur Lungs: Other (Lung sounds diminished throughout. ) Neuro: Alert and responsive, No focal deficits noted Abdomen: Soft, Non-Tender Skin: No rashes noted on visualized skin Musculoskeletal: No Chest Wall Tenderness Extremities: No Clubbing, No Cyanosis, No Edema, Normal Pulses Results 05/25/17 03:41 05/25/17 03:41 Lab Results Impressions Chest CTA 05/24/17 16:52 IMPRESSION: Negative study for pulmonary embolism. Stable exam from 05/08/2017 with stable appearance to spiculated masslike opacity medially to the right upper lobe concerning for neoplastic process along with hepatic metastatic disease as well as likely metastatic mediastinal and right hilar lymphadenopathy as well as right paraesophageal lymphadenopathy. Emphysema. D/ /24/2017 19:14:35 Ez Vogt MD / raul Interpreting Provider: Ez Vogt MD Active Medications Acetaminophen (Tylenol) 650 mg PO Q6HR PRN PRN Reason: Fever/mild pain 1-4 Stop: 11/23/17 23:13 Albuterol Sulfate (Proventil Neb) 2.5 mg IH Q2H PRN; Protocol PRN Reason: Shortness Of Breath/Wheezing Stop: 11/23/17 16:21 Albuterol/Ipratropium (Duoneb) 3 ml IH [id number] [facility] Stop: 11/23/17 20:01 Last Admin: 05/25/17 11:35 Dose: 3 ml Ascorbic Acid (Vitamin C) 500 mg PO DAILY [facility] Stop: 11/24/17 09:01 Last Admin: 05/25/17 09:09 Dose: 500 mg Aspirin (Aspirin) 81 mg PO DAILY [facility] Stop: 11/24/17 09:01 Last Admin: 05/25/17 09:10 Dose: 81 mg Cyanocobalamin (Vitamin B12) 1,000 mcg PO DAILY [facility] Stop: 11/24/17 09:01 Last Admin: 05/25/17 09:10 Dose: 1,000 mcg Diltiazem HCl (Cardizem Cd) 120 mg PO DAILY [facility] Stop: 11/24/17 10:16 Last Admin: 05/25/17 10:35 Dose: 120 mg Heparin Sodium (Porcine) (Heparin) 5,000 unit SQ Q12HCO VINOD Stop: 11/23/17 19:31 Last Admin: 05/25/17 06:03 Dose: 5,000 unit Vancomycin HCl 1,000 mg/ (Dextrose) 250 mls @ 167 mls/hr IVPB Q12H VINOD PRN Reason: Protocol Stop: 11/23/17 17:01 Last Infusion: 05/25/17 07:05 Dose: Infused Levofloxacin/Dextrose (Levaquin Premix 750mg/150 Ml) 750 mg in 150 mls @ 100 mls/hr IVPB DAILY VINOD PRN Reason: Protocol Stop: 11/24/17 09:01 Last Admin: 05/25/17 09:00 Dose: 100 mls/hr Piperacillin Sod/Tazobactam Sod (Zosyn Premix 3.375 Gm/200 Ml) 3.375 gm in 200 mls @ 50 mls/hr IVPB Q8HR VINOD Stop: 11/24/17 00:01 Last Admin: 05/25/17 09:22 Dose: 50 mls/hr Lisinopril (Zestril) 40 mg PO DAILY VINOD Stop: 11/24/17 09:01 Last Admin: 05/25/17 09:10 Dose: 40 mg Methylprednisolone (Solu-Medrol) 40 mg IVP Q6HR VINOD Stop: 11/23/17 18:01 Last Admin: 05/25/17 10:35 Dose: 40 mg Metoprolol Tartrate (Lopressor) 25 mg PO BID VINOD Stop: 11/23/17 21:01 Last Admin: 05/25/17 09:10 Dose: 25 mg Naloxone HCl (Narcan) 0.4 mg IVP Q2MIN PRN PRN Reason: Opioid Reversal Stop: 11/23/17 16:23 Oseltamivir Phosphate (Tamiflu) 75 mg PO BID [facility] Stop: 05/29/17 21:01 Last Admin: 05/25/17 10:35 Dose: 75 mg Triamterene/HCTZ (Dyazide) 1 each PO DAILY VINOD Stop: 11/24/17 09:01 Last Admin: 05/25/17 09:09 Dose: 1 each Vitamin D (Vitamin D) 1,000 unit PO DAILY VINOD Stop: 11/24/17 09:01 Last Admin: 05/25/17 09:10 Dose: 1,000 unit Vitamin E (Vitamin E) 400 unit PO DAILY VINOD Stop: 11/24/17 09:01 Last Admin: 05/25/17 09:10 Dose: 400 unit - Imaging and Cardiology Chest Xray: report reviewed Stress Test: report reviewed Echo: pending Cardiac cath: report reviewed - EKG Interpretation EKG results cardiology: personally reviewed (ECG on admission with ST versus atrial flutter with RVR, HR 145.), other (Telemetry reviewed with average HR previous 12 hours noted to be 80, sinus rhythm. PACs noted.)
--- NOTE | 2017-05-25 13:54 | Palliative - Consult Note ---
Date of Encounter: 05/25/17 Time of Encounter: 12:00 - Assessment and Plan (1) Goals of care, counseling/discussion Current Visit: Yes Status: Acute Assessment and plan: Patient recently diagnosed with suspected lung cancer showing mets to liver. Patient refusing to see Oncology for evaluation and desires no treatment for cancer. Conducted long bedside discussion related to goals of care. Patients Monalisa at bedside for discussion. Since patient denies wanting any treatment interventions for cancer I recommended Hospice care. Patient meets criteria as he appears to have lung cancer with mets to mediastinal and liver region. Spent 45 minutes discussing hospice care and services. I explained need for comfort and facilitation of breathing. I explained comfort care medications for breathing and focus on quality of life. Monalisa and patient discussed and agree to persure home hospice care through [facility]. Coordinated home durable medical equipment needs with [employer] and notified [facility]. Hopefully patient can transition home when able. State form completed for DNRCC - A, DNI. Patient to be admitted to hospice care. Hospice care to admit patient here at [facility] tomorrow. (2) Metastatic lung cancer (metastasis from lung to other site) Current Visit: Yes Status: Acute Assessment and plan: Patient opts to have no further testing or interventions for lung cancer with mets. Patient to enroll in hospice care. Qualifiers: Laterality: right Qualified Code(s): C34.91 - Malignant neoplasm of unspecified part of right bronchus or lung (3) Atrial fibrillation with RVR Current Visit: Yes Status: Acute Assessment and plan: Cardiology following and provided recommendations (4) Influenza Current Visit: Yes Status: Acute Palliative-CN HPI - Data of Consult Patient: new to practice Consult date: 05/25/17 Requesting Physician: Peter Rodriguez DO Primary Care Provider: Benny Garcia MD Family Provider: Benny Garcia MD - Consult Narrative Palliative Care/Comfort Measures: Palliative care Reason for consult: Goals of care History of present illness: Mr. Gurrola is a 72 year old male with PMH of tobacco abuse, COPD, HTN, recent diagnosis of lung cancer. Presents with chest pain, severe dyspnea, new atrial fibrillation. He reports that yesterday began experiencing nonexertional substernal chest pain/pressure and dyspnea. He reports that his chest pain subsided as prior to arrival to the ED but he remains severely dyspneic. He has a new diagnosis of metastatic lung cancer which was diagnosed in early April of this year on a prior admission. CTA at that time reveals a right upper lobe malignancy with probable mediastinal invasion. Additionally there is hepatic metastatic disease present. Patient has refused chemotherapy or radiation and declined and oncology evaluation. This palliative care consult is for goals of care discussion. CC: Peter Rodriguez, DO Past Med Surg Social Fam HX - Past Medical History Attestation: Yes The following information was validated with the patient. Source: patient, old records reviewed, obtained from family, nursing notes reviewed Medical history: atrial fibrillation, cancer, COPD, coronary artery disease, hypertension Psychiatric history: no psych history - Past Surgical History Surgical History: coronary bypass (CABG) - Social History Smoking Status: Current every day smoker Smokeless Tobacco Status: No Alcohol use: none Drug use: none Occupational status: retired Current living situation: Home, With Family Activity Level: Independent ambulation Recent Out of Country Travel Within the Last 8 Weeks: No Exposure or Possible Exposure to Illness During Travel: No - Family History Mother Name: corrina Living Status: Age at : 82 Hx Family Neurologic Disorders: Yes (cva) Medications and Allergies Albuterol Sulfate [Proair Hfa] 2 puff IH Q4H PRN 05/07/17 [History] Ascorbic Acid [Vitamin C] 500 mg PO DAILY 05/07/17 [History] Cholecalciferol (D-3) [Vitamin D] 1,000 unit PO DAILY 05/07/17 [History] Cyanocobalamin (Vitamin B-12) [Vitamin B12] 1,000 mcg PO DAILY 05/07/17 [History ] Lisinopril [Zestril] 40 mg PO DAILY 05/07/17 [History] Metoprolol [Lopressor] 25 mg PO BID 05/07/17 [History] Niacin [Plain Niacin] 500 mg PO DAILY 05/07/17 [History] Triamterene/HCTZ 37.5/25mg [Dyazide] 1 tab PO DAILY 05/07/17 [History] Vitamin E Acid Succinate [Vitamin E] 400 units PO DAILY 05/07/17 [History] Aspirin 81 mg PO DAILY #30 tab.chew 05/08/17 [Rx] Nebulizer/Compressor [[place] Choice Nebulizer] 1 each AD #1 each 05/25/17 [Rx ] 3 Allergy/AdvReac Type Severity Reaction Status Date / Time Sulfa (Sulfonamide Allergy Hives Verified 05/07/17 18:08 Antibiotics) morphine AdvReac "Makes me Verified 05/07/17 18:08 crazy" All systems: reviewed and no additional remarkable complaints except as stated ( chest pain, cough, SOB, chills) - Constitutional Constitutional ROS PAL: chills, fatigue - EENT Eyes: requires corrective lenses - Respiratory Respiratory: cough, dyspnea on exertion - Musculoskeletal Musculoskeletal ROS IM: muscle weakness - Neurological Neurological ROS: weakness Palliative Care-Exam - Constitutional Vitals: Temp Pulse Resp BP Pulse Ox 98.0 F 82 16 138/67 97 05/25/17 11:30 05/25/17 11:30 05/25/17 11:30 05/25/17 11:30 05/25/17 11:30 General appearance: Present: cooperative, no acute distress - Head Head Exam: Present: atraumatic, normal inspection - Eye Eye exam: Present: PERRL Pupils: Present: PERRL - ENT ENT exam: Present: mucous membranes moist - Expanded ENT Exam Mouth Exam: Present: moist - Respiratory Respiratory exam: Present: rhonchi - Expanded Respiratory Exam Location: decreased breath sounds: Left, Right, Lower, rhonchi: Left, Right, Upper - Cardiovascular Cardiovascular exam: Present: irregular rhythm, RRR - Expanded Cardiovascular Exam Peripheral pulses: 1+: Femoral (L) PM, Femoral (R) PM, Posterior Tibialis (L), Posterior Tibialis (R), 2+: Carotid (L) PM, Carotid (R) PM, Radial (L), Radial ( R), Dorsalis Pedis (L) PM, Dorsalis Pedis (R) PM - GI/Abdominal Exam GI/Abdominal exam: Present: normal bowel sounds, soft - Neurological Exam Neurological exam: Present: alert, CN II-XII intact - Expanded Neurological Exam Patient oriented to: Present: person, place, time Coma Scale Eye Opening: Spontaneous Coma Scale Motor Response: Obeys Commands Coma Scale Verbal Response: Oriented Coma Scale Total: 15 - Psychiatric Psychiatric exam: Present: normal affect - Skin Skin exam: Present: pallor, warm Internal Medicine - CN: Reslt - Labs CBC & Chem 7: 05/25/17 03:41 05/25/17 03:41 Labs: Short CBC 05/25/17 Range/Units 03:41 WBC 11.9 H (4.3-11.1) K/mcL Hgb 15.1 (12.9-16.9) g/dL Hct 46.4 (37.5-50.1) % Plt Count 229 (140-400) K/mcL Neutrophils # 11.2 H (1.6-8.9) K/mcL BMP 05/25/17 03:41 Sodium 139 Potassium 4.0 Chloride 106 Carbon Dioxide 24 BUN 27 H Creatinine 0.87 Glucose 139 H Calcium 9.9 Cardiac Enzymes 05/24/17 05/24/17 Range/Units 16:45 22:40 Troponin I 0.14 H* 0.13 H* (< 0.04) ng/mL - ABG Interpretation ABG results: ABG ABG pH 7.24 pH Units (7.32-7.45) L 05/24/17 16:24 ABG pCO2 57 mmHg (35-45) H 05/24/17 16:24 ABG pO2 156 mmHg (85-104) H 05/24/17 16:24 ABG O2 Saturation 99 % (95-98) H 05/24/17 16:24 PT/INR, D-dimer PT 11.6 Seconds (9.4-12.1) 05/24/17 10:31 - Impressions Impressions Chest CTA 05/24/17 16:52 IMPRESSION: Negative study for pulmonary embolism. Stable exam from 05/08/2017 with stable appearance to spiculated masslike opacity medially to the right upper lobe concerning for neoplastic process along with hepatic metastatic disease as well as likely metastatic mediastinal and right hilar lymphadenopathy as well as right paraesophageal lymphadenopathy. Emphysema. D/ /24/2017 19:14:35 Ez Vogt MD / raul Interpreting Provider: Ez Vogt MD Consult Discharge Plan - Plan Referrals: Benny Garcia MD [Primary Care Provider] - Prescriptions: Nebulizer/Compressor [[place] Choice Nebulizer] 1 each AD #1 each Palliative Quality Palliative Quality: Screen for Code Status: Yes, Screen for Goals of Care: Yes, Screen for Pain: Yes, If Pain Regimen Started, Initiate Bowel Regimen: Yes, Screen for Nausea/Vomitting: Yes Code Status: 05/24/17 16:22 Resuscitation Status: Active [RES] Routine Comment: Resuscitation Status: Full Code 05/24/17 21:42 DNR [Resuscitation Status: Active] [RES] Routine Comment: Resuscitation Status: [id number]
--- NOTE | 2017-05-25 15:02 | Event Note ---
Date of Encounter: 05/25/17 Time of Encounter: 15:01 - Cardiology Event Note TTE with LVEF 60%. Patient has decided to pursue hospice care. Patient will be admitted to inpatient hospice tomorrow. Cardiology will sign off.
--- NOTE | 2017-05-25 16:17 | Internal Med Progress Note ---
<Ynes Serrano - Last Filed: 05/25/17 16:01> Date of Encounter: 05/25/17 Time of Encounter: 16:01 - Assessment and plan (1) Sepsis Current Visit: Yes Status: Acute Assessment and plan: Patient had tachycardia, tachypnea, hypoxia, fever, and neutrophilic leukocytosis on admission. Due to influenza A Qualifiers: Sepsis type: sepsis due to unspecified organism Qualified Code(s): A41.9 - Sepsis, unspecified organism (2) Influenza A Current Visit: Yes Status: Acute (3) Acute respiratory failure with hypoxia and hypercapnia Current Visit: Yes Status: Acute Assessment and plan: Supplemental oxygen BiPAP prn (4) Atrial fibrillation with RVR Current Visit: Yes Status: Acute Assessment and plan: cardizem 120mg daily No anticoagulation, patient is being discharged to home hospice (5) COPD (chronic obstructive pulmonary disease) Current Visit: Yes Status: Chronic Assessment and plan: Acute exacerbation of COPD, most likely due to influenza A Antibiotics have been discontinued duonebs q4h albuterol q2h prn solumedrol 40 mg q6h Qualifiers: COPD type: emphysema Emphysema type: unilateral Qualified Code(s): J43.0 - Unilateral pulmonary emphysema [MacLeod's syndrome] (6) Metastatic lung cancer (metastasis from lung to other site) Current Visit: Yes Status: Acute Assessment and plan: Diagnosed early April of this year Patient has declined further evaluation or treatment Plan for patient to be discharged home tomorrow with home hospice Qualifiers: Laterality: right Qualified Code(s): C34.91 - Malignant neoplasm of unspecified part of right bronchus or lung (7) HTN (hypertension) Current Visit: Yes Status: Acute Assessment and plan: Chronic, stable Continue lisinopril, metoprolol Qualifiers: Hypertension type: essential hypertension Qualified Code(s): I10 - Essential (primary) hypertension (8) Coronary artery disease Current Visit: Yes Status: Chronic Assessment and plan: Continue aspirin and metoprolol Qualifiers: Coronary Disease-Associated Artery/Lesion type: [place] artery [place] vs. transplanted heart: [place] heart Associated angina: without angina Qualified Code(s): I25.10 - Atherosclerotic heart disease of [place] coronary artery without angina pectoris - Subjective Interval history: Patient seen and examined. He is using 3 L oxygen via nasal cannula. She did not use supplemental oxygen before this admission. He was admitted with severe respiratory distress. - Constitutional Vitals: Temp Pulse Resp BP Pulse Ox 98.0 F 82 16 138/67 97 05/25/17 11:30 05/25/17 11:30 05/25/17 11:39 05/25/17 11:30 05/25/17 11:39 General appearance: Present: A&O X 3, severe distress, answers questions appropriately - Head Head exam: Present: atraumatic, normocephalic - Eye Eye exam: Present: PERRL, conjuntiva pink, sclera anicteric Pupils: Present: PERRL - Neck Neck exam general surgery: Present: supple, trachea midline - Respiratory Respiratory exam: Present: rhonchi - Cardiovascular Cardiovascular exam: Present: irregular rhythm, +S1, +S2 - GI/Abdominal GI/Abdominal exam: Present: normal bowel sounds, soft, no peritoneal signs. Absent: distended, tenderness - Extremities Exam Extremities exam: Present: warm. Absent: pedal edema, tenderness Additional comments: Posterior tibial pulses palpable and symmetric - Neurological Exam Neurological exam: Present: CN II-XII intact, oriented X3, no focal deficits. Absent: pronater drift, facial droop, speech deficit - Skin Skin exam: Present: dry, intact Internal Medicine: Result - Labs CBC & Chem 7: 05/25/17 03:41 05/25/17 03:41 Labs: Short CBC 05/25/17 Range/Units 03:41 WBC 11.9 H (4.3-11.1) K/mcL Hgb 15.1 (12.9-16.9) g/dL Hct 46.4 (37.5-50.1) % Plt Count 229 (140-400) K/mcL Neutrophils # 11.2 H (1.6-8.9) K/mcL BMP 05/25/17 03:41 Sodium 139 Potassium 4.0 Chloride 106 Carbon Dioxide 24 BUN 27 H Creatinine 0.87 Glucose 139 H Calcium 9.9 Cardiac Enzymes 05/24/17 05/24/17 Range/Units 16:45 22:40 Troponin I 0.14 H* 0.13 H* (< 0.04) ng/mL - ABG Interpretation ABG results: ABG ABG pH 7.24 pH Units (7.32-7.45) L 05/24/17 16:24 ABG pCO2 57 mmHg (35-45) H 05/24/17 16:24 ABG pO2 156 mmHg (85-104) H 05/24/17 16:24 ABG O2 Saturation 99 % (95-98) H 05/24/17 16:24 PT/INR, D-dimer PT 11.6 Seconds (9.4-12.1) 05/24/17 10:31 - Impressions Impressions Chest CTA 05/24/17 16:52 IMPRESSION: Negative study for pulmonary embolism. Stable exam from 05/08/2017 with stable appearance to spiculated masslike opacity medially to the right upper lobe concerning for neoplastic process along with hepatic metastatic disease as well as likely metastatic mediastinal and right hilar lymphadenopathy as well as right paraesophageal lymphadenopathy. Emphysema. D/ /24/2017 19:14:35 Ez Vogt MD / raul Interpreting Provider: Ez Vogt MD Echocardiogram 05/25/17 09:59 Impressions: LVEF 60%. Mild concentric left ventricular hypertrophy. Mild left ventricular diastolic dysfunction. RV size is not well visualized. Overall, function appears normal. No significant valvular dysfunction. No pulmonary hypertension. Left Ventricular Wall Motion: Rest Echo Findings All wall segments showed normal motion. Findings: Study Quality * Technically adequate exam. ECG Findings * Normal sinus rhythm. Left Ventricle * LVEF 60%. * Mild concentric left ventricular hypertrophy. * Normal LV size. * Mild left ventricular diastolic dysfunction. Right Ventricle * RV size is not well visualized. Overall, function appears normal. Left Atrium * Normal left atrial size. Right Atrium * Normal right atrial size. Aortic Valve * No aortic regurgitation. * Aortic valve not well visualized. * No aortic stenosis. Mitral Valve * Normal mitral valve structure. * No mitral regurgitation. * No mitral stenosis. Tricuspid Valve * No tricuspid regurgitation. * Estimated RA pressure is 8 mmHg. * Normal tricuspid valve structure. Pulmonic Valve * Pulmonic valve is not well visualized. * No pulmonic stenosis. * No pulmonic regurgitation. Pulmonary Artery * Pulmonary artery not well visualized. Aorta * Normally sized aortic root. Pericardium * There is no pericardial effusion present. Interatrial Septum * No evidence of PFO by color Doppler. * Lipomatous interatrial septum. IVC * The IVC is dilated. * > 50% respiratory change Consult Discharge Plan - Plan Referrals: Benny Garcia MD [Primary Care Provider] - Prescriptions: LORazepam Oral Conc [Ativan Oral Conc] 1 mg PO Q6HR PRN #15 mls PRN Reason: Anxiety Albuterol Neb [Proventil Neb] 2.5 mg IH Q2H PRN #24 vial.neb PRN Reason: Dyspnea HYDROcodone/Acet 5/325 mg [[place] 5-325 mg] 1 tab PO Q4H PRN #12 tab PRN Reason: Cancer Pain Nebulizer/Compressor [[place] Choice Nebulizer] 1 each AD #1 each <Peter Rodriguez - Last Filed: 05/25/17 19:37> Date of Encounter: 05/25/17 - Assessment and plan (1) Acute respiratory failure with hypoxia and hypercapnia Current Visit: Yes Status: Acute (2) Influenza A Current Visit: Yes Status: Acute (3) Sepsis Current Visit: Yes Status: Acute Qualifiers: Sepsis type: sepsis due to unspecified organism Qualified Code(s): A41.9 - Sepsis, unspecified organism (4) HTN (hypertension) Current Visit: Yes Status: Acute Qualifiers: Hypertension type: essential hypertension Qualified Code(s): I10 - Essential (primary) hypertension (5) Metastatic lung cancer (metastasis from lung to other site) Current Visit: Yes Status: Acute Qualifiers: Laterality: right Qualified Code(s): C34.91 - Malignant neoplasm of unspecified part of right bronchus or lung (6) Coronary artery disease Current Visit: Yes Status: Chronic Qualifiers: Coronary Disease-Associated Artery/Lesion type: [place] artery [place] vs. transplanted heart: [place] heart Associated angina: without angina Qualified Code(s): I25.10 - Atherosclerotic heart disease of [place] coronary artery without angina pectoris - Constitutional Vitals: Temp Pulse Resp BP Pulse Ox 98.4 F 102 16 117/63 97 05/25/17 16:32 05/25/17 16:32 05/25/17 16:32 05/25/17 16:32 05/25/17 16:32 Internal Medicine: Result - Labs CBC & Chem 7: 05/25/17 03:41 05/25/17 03:41 Labs: Short CBC 05/25/17 Range/Units 03:41 WBC 11.9 H (4.3-11.1) K/mcL Hgb 15.1 (12.9-16.9) g/dL Hct 46.4 (37.5-50.1) % Plt Count 229 (140-400) K/mcL Neutrophils # 11.2 H (1.6-8.9) K/mcL BMP 05/25/17 03:41 Sodium 139 Potassium 4.0 Chloride 106 Carbon Dioxide 24 BUN 27 H Creatinine 0.87 Glucose 139 H Calcium 9.9 Cardiac Enzymes 05/24/17 Range/Units 22:40 Troponin I 0.13 H* (< 0.04) ng/mL - ABG Interpretation ABG results: ABG ABG pH 7.24 pH Units (7.32-7.45) L 05/24/17 16:24 ABG pCO2 57 mmHg (35-45) H 05/24/17 16:24 ABG pO2 156 mmHg (85-104) H 05/24/17 16:24 ABG O2 Saturation 99 % (95-98) H 05/24/17 16:24 PT/INR, D-dimer PT 11.6 Seconds (9.4-12.1) 05/24/17 10:31 - Impressions Impressions Chest CTA 05/24/17 16:52 IMPRESSION: Negative study for pulmonary embolism. Stable exam from 05/08/2017 with stable appearance to spiculated masslike opacity medially to the right upper lobe concerning for neoplastic process along with hepatic metastatic disease as well as likely metastatic mediastinal and right hilar lymphadenopathy as well as right paraesophageal lymphadenopathy. Emphysema. D/ : / 05/24/2017 19:14:35 Ez Vogt MD / raul Interpreting Provider: Ez Vogt MD Echocardiogram 05/25/17 09:59 Impressions: LVEF 60%. Mild concentric left ventricular hypertrophy. Mild left ventricular diastolic dysfunction. RV size is not well visualized. Overall, function appears normal. No significant valvular dysfunction. No pulmonary hypertension. Left Ventricular Wall Motion: Rest Echo Findings All wall segments showed normal motion. Findings: Study Quality * Technically adequate exam. ECG Findings * Normal sinus rhythm. Left Ventricle * LVEF 60%. * Mild concentric left ventricular hypertrophy. * Normal LV size. * Mild left ventricular diastolic dysfunction. Right Ventricle * RV size is not well visualized. Overall, function appears normal. Left Atrium * Normal left atrial size. Right Atrium * Normal right atrial size. Aortic Valve * No aortic regurgitation. * Aortic valve not well visualized. * No aortic stenosis. Mitral Valve * Normal mitral valve structure. * No mitral regurgitation. * No mitral stenosis. Tricuspid Valve * No tricuspid regurgitation. * Estimated RA pressure is 8 mmHg. * Normal tricuspid valve structure. Pulmonic Valve * Pulmonic valve is not well visualized. * No pulmonic stenosis. * No pulmonic regurgitation. Pulmonary Artery * Pulmonary artery not well visualized. Aorta * Normally sized aortic root. Pericardium * There is no pericardial effusion present. Interatrial Septum * No evidence of PFO by color Doppler. * Lipomatous interatrial septum. IVC * The IVC is dilated. * > 50% respiratory change - Attending Attestation I examined this patient and my medical decision-making was reviewed with the Resident Physician on 05/25/17. I agree with the documented findings, disposition and treatment plan as described except to the extent set forth below. Mr Gurrola is currently admitted for resp failure. He is influenza A positive. He remains moderate to high risk due to potential for worsening respiratory status. Mr Gurrola is still coughing. No fever. No pain at this time. at bedside - she is on Tamiflu. Exam Alert. Mod distress due to breathing Mucus membranes dry Heart reg Scant wheeze I/P 1. Flu A PNA 2. Lung cancer Further diagnoses and plan as above. Start Tamiflu.
--- NOTE | 2017-05-25 19:11 | Electrocardiograph Report ---
[address] [id number] Test Date: 2017-05-24 Pat Name: Chris Gurrola Department: 110 Room: [facility] Gender: M Material Expediter: SERGEY : 1945 Requested By: Thong Grayson Order Number: [id number] Reading MD: Sam Dee MD Measurements Intervals [place] Rate: 103 P: 80 RI: 133 QRS: 69 QRSD: 122 T: 30 QT: 344 QTc: 404 Interpretive Statements SINUS TACHYCARDIA RIGHT ATRIAL ENLARGEMENT LEFT ATRIAL ENLARGEMENT Electronically Signed On 05-25-2017 19:09:48 EST by Sam Dee MD
[2017-05-26] MEDS: MethylPREDNISolone 40 MG/ML VIAL IVP SCH ×2 (00:31→06:01)
[2017-05-26] MEDS: Ipratropium/Albuterol Neb 3 ML IH SCH ×3 (03:47→10:54)
[2017-05-26] MEDS: *HR* Heparin 5,000 UNIT/ML VIAL SQ SCH ×2 (06:01→06:06)
[2017-05-26] MEDS: Diltiazem CD (24hr) 120 MG CAPSULE PO SCH (07:42)
[2017-05-26] MEDS: Aspirin 81 MG TAB.CHEW PO SCH (07:42)
[2017-05-26] MEDS: Ascorbic Acid 500 MG TABLET PO SCH (07:43)
[2017-05-26] MEDS: Cyanocobalamin (B-12) 1,000 MCG TABLET PO SCH (07:43)
[2017-05-26] MEDS: Lisinopril 20 MG TABLET PO SCH (07:43)
[2017-05-26] MEDS: Cholecalciferol (D-3) 1,000 UNIT TABLET PO SCH (07:43)
[2017-05-26 07:50] VITALS: BP 114/74
--- NOTE | 2017-05-26 08:09 | Discharge Summary ---
<Ynes Serrano - Last Filed: 05/26/17 09:36> Date of Encounter: 05/26/17 Time of Encounter: 08:04 - Discharge Diagnosis (1) Sepsis Priority: Primary Status: Acute Qualifiers: Sepsis type: sepsis due to unspecified organism Qualified Code(s): A41.9 - Sepsis, unspecified organism (2) Influenza A Priority: Primary Status: Acute (3) Acute respiratory failure with hypoxia and hypercapnia Priority: Primary Status: Acute (4) Atrial fibrillation with RVR Priority: Primary Status: Acute (5) COPD (chronic obstructive pulmonary disease) Priority: Secondary Status: Chronic Qualifiers: COPD type: emphysema Emphysema type: unilateral Qualified Code(s): J43.0 - Unilateral pulmonary emphysema [MacLeod's syndrome] (6) Metastatic lung cancer (metastasis from lung to other site) Priority: Secondary Status: Acute Qualifiers: Laterality: right Qualified Code(s): C34.91 - Malignant neoplasm of unspecified part of right bronchus or lung (7) HTN (hypertension) Priority: Secondary Status: Acute Qualifiers: Hypertension type: essential hypertension Qualified Code(s): I10 - Essential (primary) hypertension (8) Coronary artery disease Priority: Secondary Status: Chronic Qualifiers: Coronary Disease-Associated Artery/Lesion type: [place] artery [place] vs. transplanted heart: [place] heart Associated angina: without angina Qualified Code(s): I25.10 - Atherosclerotic heart disease of [place] coronary artery without angina pectoris - Discharge Medications Prescriptions: LORazepam Oral Conc [Ativan Oral Conc] 1 mg PO Q6HR PRN #15 mls PRN Reason: Anxiety Albuterol Neb [Proventil Neb] 2.5 mg IH Q2H PRN #24 vial.neb PRN Reason: Dyspnea Albuterol Sulfate [Albuterol Inhaler] 2 puff IH Q4H PRN #1 inh PRN Reason: Shortness Of Breath Diltiazem CD (24hr) [Cardizem CD] 120 mg PO DAILY #60 cap.er.24h HYDROcodone/Acet 5/325 mg [[place] 5-325 mg] 1 tab PO Q4H PRN #12 tab PRN Reason: Cancer Pain Nebulizer/Compressor [[place] Choice Nebulizer] 1 each MC AD #1 each Oseltamivir [Tamiflu] 75 mg PO BID #5 capsule PredniSONE [Deltasone] See Taper PO DAILY #30 tablet Home Medications: Albuterol Sulfate [Proair Hfa] 2 puff IH Q4H PRN 05/07/17 [History] Ascorbic Acid [Vitamin C] 500 mg PO DAILY 05/07/17 [History] Cholecalciferol (D-3) [Vitamin D] 1,000 unit PO DAILY 05/07/17 [History] Cyanocobalamin (Vitamin B-12) [Vitamin B12] 1,000 mcg PO DAILY 05/07/17 [History ] Lisinopril [Zestril] 40 mg PO DAILY 05/07/17 [History] Metoprolol [Lopressor] 25 mg PO BID 05/07/17 [History] Niacin [Plain Niacin] 500 mg PO DAILY 05/07/17 [History] Triamterene/HCTZ 37.5/25mg [Dyazide] 1 tab PO DAILY 05/07/17 [History] Vitamin E Acid Succinate [Vitamin E] 400 units PO DAILY 05/07/17 [History] Aspirin 81 mg PO DAILY #30 tab.chew 05/08/17 [Rx] Albuterol Neb [Proventil Neb] 2.5 mg IH Q2H PRN #24 vial.neb 05/25/17 [Rx] HYDROcodone/Acet 5/325 mg [[place] 5-325 mg] 1 tab PO Q4H PRN #12 tab 05/25/17 [Rx ] LORazepam Oral Conc [Ativan Oral Conc] 1 mg PO Q6HR PRN #15 mls 05/25/17 [Rx] Nebulizer/Compressor [[place] Choice Nebulizer] 1 each AD #1 each 05/25/17 [Rx ] Albuterol Sulfate [Albuterol Inhaler] 2 puff IH Q4H PRN #1 inh 05/26/17 [Rx] Diltiazem CD (24hr) [Cardizem CD] 120 mg PO DAILY #60 cap.er.24h 05/26/17 [Rx] Oseltamivir [Tamiflu] 75 mg PO BID #5 capsule 05/26/17 [Rx] PredniSONE [Deltasone] See Taper PO DAILY #30 tablet 05/26/17 [Rx] Allergies/Adverse Reactions: 3 Allergy/AdvReac Type Severity Reaction Status Date / Time Sulfa (Sulfonamide Allergy Hives Verified 05/07/17 18:08 Antibiotics) morphine AdvReac "Makes me Verified 05/07/17 18:08 crazy" Procedures/tests Complete & Pending: Procedures Performed prior 72 hours Category Date Time Status CTA chest [CT angio chest] [CT] Stat Cat Scan 05/24/17 16:52 Completed ECG 12 lead ECG [ECG] Routine Y 05/24/17 10:24 Completed EKG [ECG 12 lead ECG] [ECG] Stat Y 05/24/17 17:35 Completed EV echocardiogram Routine Y 05/25/17 09:59 Completed Date of admission: 05/24/17 13:39 Primary care physician: Benny Garcia MD Consults: 05/24/17 16:35 Consult to Pulmonology [CONS] Routine Consulting Provider: [facility] [place] Reason for Consult: acute respiratory failure; respiratory acidosis Time Notified: 16:35 Call Completed: Yes 05/24/17 16:52 Consult to Pastoral Services [CONS] Routine Comment: Consult to Technical Support Assistant [CONS] Routine Reason for SW Consult: terminal cancer may need home health or hospice 05/25/17 08:29 Consult to Palliative Care [CONS] Routine Comment: Consulting Provider: [facility] [place] Reason for Consult: admission for acute on chronic respiratory failure; does not want treatment for recent dx of lung cancer; discuss goals of care Time Notified: 08:33 Call Completed: Yes Discharging clinician: Ynes Serrano Anticipated date of discharge: 05/26/17 - Patient Status Disposition: Hospice - Home Condition: Fair Functional capacity at discharge: wheelchair bound Overall status at discharge: patient is not back to baseline - Discharge Instructions Instructions: Atrial Fibrillation (DC), Chest Pain (DC) Follow Up With: Benny Garcia MD [Primary Care Provider] - - Diet and Activity Diet: advance to your usual diet Interval History: Patient states that he feels 100% better. He is breathing room air this morning. Hospital course: Mr. Gurrola is a 72 year old male admitted for sepsis due to influenza A. He had severe respiratory distress on admission with diminished lung sounds and limited air movement. Both admitting hospitalist and pulmonology recommended BiPAP on admission; however, patient refused this treatment. He is DNR-CCA-DNI and was diagnosed with metastatic lung cancer at the beginning of this month. He was initially started on broad-spectrum antibiotics due to the influenza A not being known on admission. He was also started on IV steroids and scheduled nebulizer treatments. He also was found to be in atrial fibrillation with rapid ventricular response on admission and started on a Cardizem drip. When influenza came back positive, Tamiflu was started and the antibiotics were stopped. Palliative care was consult and further goals of care. The patient is being discharged with home hospice today. He will complete his course of Tamiflu. He is being discharged on oral Cardizem for atrial fibrillation. He will have home nebulizer treatments to use as needed. He will have an oral steroid taper. Home hospice is meeting his at the house at 9 AM on the day of discharge. - Time Spent with Patient Total time spent providing and/or coordinating discharge services: - Constitutional Vitals: Temp Pulse Resp BP Pulse Ox 98.3 F 82 18 114/74 98 05/26/17 07:46 05/26/17 07:46 05/26/17 07:46 05/26/17 07:46 05/26/17 07:46 General appearance: Present: A&O X 3, answers questions appropriately - Head Head exam: Present: atraumatic, normocephalic - Eye Eye exam: Present: PERRL, conjuntiva pink, sclera anicteric Pupils: Present: PERRL - Neck Neck exam general surgery: Present: supple, trachea midline - Respiratory Respiratory exam: Present: decreased breath sounds, wheezes (end-expiratory) - Cardiovascular Cardiovascular exam: Present: irregular rhythm, +S1, +S2 - GI/Abdominal GI/Abdominal exam: Present: normal bowel sounds, soft, no peritoneal signs. Absent: distended, tenderness - Extremities Exam Extremities exam: Present: warm. Absent: pedal edema, tenderness Additional comments: Posterior tibial pulses palpable and symmetric - Neurological Exam Neurological exam: Present: CN II-XII intact, oriented X3, no focal deficits. Absent: pronater drift, facial droop, speech deficit - Skin Skin exam: Present: dry, intact <Peter Rodriguez - Last Filed: 05/26/17 15:21> Date of Encounter: 05/26/17 - Discharge Diagnosis (1) Acute respiratory failure with hypoxia and hypercapnia Status: Resolved (2) Influenza A Status: Acute (3) Sepsis Status: Resolved Qualifiers: Sepsis type: sepsis due to unspecified organism Qualified Code(s): A41.9 - Sepsis, unspecified organism (4) HTN (hypertension) Status: Chronic Qualifiers: Hypertension type: essential hypertension Qualified Code(s): I10 - Essential (primary) hypertension (5) Metastatic lung cancer (metastasis from lung to other site) Status: Chronic Qualifiers: Laterality: right Qualified Code(s): C34.91 - Malignant neoplasm of unspecified part of right bronchus or lung (6) Coronary artery disease Status: Chronic Qualifiers: Coronary Disease-Associated Artery/Lesion type: [place] artery [place] vs. transplanted heart: [place] heart Associated angina: without angina Qualified Code(s): I25.10 - Atherosclerotic heart disease of [place] coronary artery without angina pectoris Procedures/tests Complete & Pending: Procedures Performed prior 72 hours Category Date Time Status CTA chest [CT angio chest] [CT] Stat Cat Scan 05/24/17 16:52 Completed ECG 12 lead ECG [ECG] Routine Y 05/24/17 10:24 Completed EKG [ECG 12 lead ECG] [ECG] Stat Y 05/24/17 17:35 Completed EV echocardiogram Routine Y 05/25/17 09:59 Completed Date of admission: 05/24/17 13:39 Primary care physician: Benny Garcia MD Consults: 05/24/17 16:35 Consult to Pulmonology [CONS] Routine Consulting Provider: [facility] [place] Reason for Consult: acute respiratory failure; respiratory acidosis Time Notified: 16:35 Call Completed: Yes 05/24/17 16:52 Consult to Pastoral Services [CONS] Routine Comment: Consult to Technical Support Assistant [CONS] Routine Reason for SW Consult: terminal cancer may need home health or hospice 05/25/17 08:29 Consult to Palliative Care [CONS] Routine Comment: Consulting Provider: [facility] [place] Reason for Consult: admission for acute on chronic respiratory failure; does not want treatment for recent dx of lung cancer; discuss goals of care Time Notified: 08:33 Call Completed: Yes Hospital course: Mr. Gurrola is a 72 year old male - Time Spent with Patient Total time spent providing and/or coordinating discharge services: 39min - Constitutional Vitals: Temp Pulse Resp BP Pulse Ox 98.3 F 82 16 114/74 94 05/26/17 07:46 05/26/17 07:46 05/26/17 07:52 05/26/17 07:46 05/26/17 07:52 - Attending Attestation I examined this patient and my medical decision-making was reviewed with the Resident Physician on 05/26/17. I agree with the documented findings, disposition and treatment plan as described except to the extent set forth below. Mr Gurrola has been admitted for acute exac COPD and acute influenza A. He is now afebrile with stable vitals. Arrangements have been made for home hospice and they will be there today. He is read for discharge home. Exam Alert. Comfortable Mucus membranes dry Heart reg Rhonchi bilaterally. Plan D/C home with hospice. Complete Tamiflu.
--- NOTE | 2017-05-26 08:12 | Physician Discharge Referral ---
Home Health/Hosp Referral Info Transfer to: Hospice Attending Provider: Dr. Peter Rodriguez Provider in Charge Post Discharge: Food Safety Officer - Diagnosis (1) Sepsis Priority: Primary Status: Acute (2) Influenza A Priority: Primary Status: Acute (3) Acute respiratory failure with hypoxia and hypercapnia Priority: Primary Status: Acute (4) Atrial fibrillation with RVR Priority: Primary Status: Acute (5) COPD (chronic obstructive pulmonary disease) Priority: Secondary Status: Chronic (6) Metastatic lung cancer (metastasis from lung to other site) Priority: Secondary Status: Acute (7) HTN (hypertension) Priority: Secondary Status: Acute (8) Coronary artery disease Priority: Secondary Status: Chronic - Respiratory Orders Oxygen / L per min (3) Smoking Cessation: Smoking cessation has been advised. For more information, call the [place] Quit Line at 3-392-OUMV-NOW. - Diet/Nutrition Diet/Nutrition Orders: Regular - Activity Activity Orders: Up ad alicia - Services Needed Following services are medically necessary services: Nursing, Home Health Aide, Physical Therapy - Transfer Medications Prescriptions: LORazepam Oral Conc [Ativan Oral Conc] 1 mg PO Q6HR PRN #15 mls PRN Reason: Anxiety Albuterol Neb [Proventil Neb] 2.5 mg IH Q2H PRN #24 vial.neb PRN Reason: Dyspnea Diltiazem CD (24hr) [Cardizem CD] 120 mg PO DAILY #60 cap.er.24h HYDROcodone/Acet 5/325 mg [[place] 5-325 mg] 1 tab PO Q4H PRN #12 tab PRN Reason: Cancer Pain Nebulizer/Compressor [[place] Choice Nebulizer] 1 each MC AD #1 each Oseltamivir [Tamiflu] 75 mg PO BID #5 capsule PredniSONE [Deltasone] See Taper PO DAILY #30 tablet Home Medications: Albuterol Sulfate [Proair Hfa] 2 puff IH Q4H PRN 05/07/17 [History] Ascorbic Acid [Vitamin C] 500 mg PO DAILY 05/07/17 [History] Cholecalciferol (D-3) [Vitamin D] 1,000 unit PO DAILY 05/07/17 [History] Cyanocobalamin (Vitamin B-12) [Vitamin B12] 1,000 mcg PO DAILY 05/07/17 [History ] Lisinopril [Zestril] 40 mg PO DAILY 05/07/17 [History] Metoprolol [Lopressor] 25 mg PO BID 05/07/17 [History] Niacin [Plain Niacin] 500 mg PO DAILY 05/07/17 [History] Triamterene/HCTZ 37.5/25mg [Dyazide] 1 tab PO DAILY 05/07/17 [History] Vitamin E Acid Succinate [Vitamin E] 400 units PO DAILY 05/07/17 [History] Aspirin 81 mg PO DAILY #30 tab.chew 05/08/17 [Rx] Albuterol Neb [Proventil Neb] 2.5 mg IH Q2H PRN #24 vial.neb 05/25/17 [Rx] HYDROcodone/Acet 5/325 mg [[place] 5-325 mg] 1 tab PO Q4H PRN #12 tab 05/25/17 [Rx ] LORazepam Oral Conc [Ativan Oral Conc] 1 mg PO Q6HR PRN #15 mls 05/25/17 [Rx] Nebulizer/Compressor [[place] Choice Nebulizer] 1 each AD #1 each 05/25/17 [Rx ] Diltiazem CD (24hr) [Cardizem CD] 120 mg PO DAILY #60 cap.er.24h 05/26/17 [Rx] Oseltamivir [Tamiflu] 75 mg PO BID #5 capsule 05/26/17 [Rx] PredniSONE [Deltasone] See Taper PO DAILY #30 tablet 05/26/17 [Rx] Allergies/Adverse Reactions: 3 Allergy/AdvReac Type Severity Reaction Status Date / Time Sulfa (Sulfonamide Allergy Hives Verified 05/07/17 18:08 Antibiotics) morphine AdvReac "Makes me Verified 05/07/17 18:08 ca" Certification: Further, I certify that my clinical findings support that this patient is homebound (i.e. absences from home require considerable and taxing effort and are for medical reasons or baptism services or infrequently or short duration when for other reasons) because: Homebound Reason: Patient requires assistance of a person or device to safely leave home, Leaving home requires considerable and taxing effort due to condition, Severity of cardiac or pulmonary status limits activity tolerance Attestation: My signature below is to certify that this patient is under my care and that I, or nurse practitioner, or a physician's advertising assistant manager working with me, has a face-to -face encounter with this patient.
--- NOTE | 2017-05-29 15:44 | Event Note ---
Date of Encounter: 05/29/17 Time of Encounter: 15:42 Hospice medical collections representative certification of terminal illness: Hospice benefit. Start: 05/26/2017 Hospice benefit. In: +90 days Palliative performance scale: 30-40% History: Patient has a history of COPD as well as a recent diagnosis of lung cancer lung cancer appears to be fairly widely metastatic liver involvement area the patient has refused any chemotherapy or radiation therapy refused a oncology evaluation. As the cancer appears to be at least somewhat aggressive and the patient wishes to have no treatment for it I believe that These findings support a life expectancy of 6 months or less. I attest that I have compose the above narrative based on my review of the patient's medical records, and or on my examination of the patient. Benny Portillo M.D. Associate medical appointment clerk. [facility]
== END 2017-05-26 11:30 | disposition hospice, home (50) | DRG 871 ==
LOC: EMEROO 10:19 → SUATTDRO 13:39 → 2NENU 13:39 → 2NNU 17:12
PROVIDERS: ADMIT Internal Medicine Nephrology; ATTEND Internal Medicine